=== PATIENT | female | born 1965 | race Caucasian/White ===

== ENCOUNTER → 2017-02-02 | Outpatient (CLI) | payer BC ==
--- NOTE | 2017-02-02 21:57 | WWHP ---
DATE OF SERVICE: 02/02/17 CHIEF COMPLAINT: The patient is here for her routine gynecological exam and mammogram. HISTORY OF PRESENT ILLNESS: This is a 51 -year-old G2, P2 with an LMP of . She states her last prior menstrual period was on 09/19/16. Prior to September , menses were regular every month. She denies hot flashes. She states she has noticed a small lump in the left breast which was first felt three weeks ago. She states she does not always feel it. She states it is smaller than a pea but larger than a BB. This is more noticeable when she is in the sitting position. She denies any breast pain or soreness. PAST MEDICAL HISTORY: Rosacea. Medications: 1. Ibuprofen prn. 2. Multivitamin daily. 3. Finacea cream b.i.d. for rosacea. ALLERGIES: No known drug allergies. 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 FAMILY HISTORY: Father has dementia and high blood pressure. Mother had lung cancer. Paternal grandmother had breast cancer and hypertension. Grandfather had diabetes and hypertension. SOCIAL HISTORY: She denies tobacco, alcohol and drug use. 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 She has been since 1988. REVIEW OF SYSTEMS: She has lost about 4 pounds over the last year. She denies respiratory, cardiac or GI problems. PHYSICAL EXAM: Blood pressure 133/82. Height 5 feet 6 inches, weight 112 pounds. Temperature 97.3. Pulse 78. This is a well developed, thin white female who is alert and oriented times three in no acute distress. HEENT: is within normal limits. Neck is supple without mass or thyromegaly. Chest and lungs clear to auscultation. Heart is regular rate and rhythm. Breasts there is a palpable small lump in the left breast, at approximately the 4 o'clock position, approximately 1 cm from the areola. This measures approximately 0.5 cm and is mobile and smooth. This is nontender and there is no erythema or dimpling in this area. There are no other palpable breast masses. Axillary exam is negative for adenopathy. Back negative for CVA tenderness. Abdomen is soft and nontender without palpable masses. Pelvic exam, normal external genitalia. Cervix and vagina reveals moderate amount of menstrual blood consistent with her current menses. The cervix appears normal. Bimanual exam and rectal exam were deferred and these will be done when she returns for her Pap smear. Extremities nontender. IMPRESSION: 1. A 51 year old perimenopausal female with recent oligomenorrhea without significant vasomotor symptoms. 2. Small left breast mass noticed by the patient three weeks ago which is smooth, mobile and approximately 0.5 cm. This is not very suspicious by examination today. PLAN: 1. Pap smear and bimanual examination were deferred because of the amount of menstrual blood. She will return within the next couple of weeks when her period has stopped. We will do the rest of the pelvic exam at that time. 2. Self breast examination was discussed. 3. Diagnostic mammogram with left ultrasound will be done today to further evaluate the small lump that she has palpated. If this is benign, we will proceed with conservative management as it is not very suspicious by examination. 4. The patient will keep a menstrual calender and call if she is having menstrual problems. 5. She will return in one year and prn. MTDD
--- NOTE | 2017-02-03 10:26 | MM ---
Reason for exam: clinical finding. Last mammogram was performed 1 year ago. History: Patient had first child at age 33. Family history of breast cancer in paternal grandmother at age 72. Indicated problem(s): lump or thickening in the left breast. Physical Findings: 0.5cm nodule in the left breast at 4 o'clock (). MG 3D Diag Mammo W/Cad NAHUN Bilateral CC and MLO view(s) were taken. Prior study comparison: February 04, 2016, bilateral MG 3d screening mammo w/cad. January 08, 2015, bilateral MG screening mammo w CAD. The breast tissue is extremely dense which could obscure a lesion on mammography. There is no discrete abnormality. These results were verbally communicated with the patient and result sheet given to the patient on 02/02/17. ASSESSMENT: Negative, BI-RAD 1 RECOMMENDATION: Routine screening mammogram of both breasts in 1 year.
--- NOTE | 2017-02-03 10:29 | USB ---
Reason for exam: clinical finding. History: Patient had first child at age 33. Family history of breast cancer in paternal grandmother at age 72. US Breast LT Left breast ultrasound includes all four quadrants, the retroareolar region and axilla. Finding demonstrate no cystic or solid lesion seen. These results were verbally communicated with the patient and result sheet given to the patient on 02/02/17. ASSESSMENT: Negative, BI-RAD 1 RECOMMENDATION: Routine screening mammogram of both breasts in 1 year. Manage patient on a clinical basis. (Palpable).
== END | disposition home or self-care (01) ==
LOC: WWCWWP 08:23
PROVIDERS: ATTEND Obstetrics & Gynecology
DX: N63 Unspecified lump in breast (principal)
CPT/HCPCS: 76641; G0204; G0279

== ENCOUNTER → 2017-02-09 | Outpatient (CLI) | payer BC | LOC: WWCWWP 08:30 | PROVIDERS: ATTEND Obstetrics & Gynecology | DX: Z01.419 Encounter for gynecological examination (general) (routine) without abnormal findings (principal) ==

== ENCOUNTER → 2017-11-30 | Outpatient (CLI) | payer BC ==
[2017-11-30 14:19] VITALS: BP 139/80; PULSE 74; TEMP 98; BMI 18.6
--- NOTE | 2017-11-30 14:41 | P.PN ---
Progress Note - Text Progress Note Date: 11/30/17 Chief complaint: left breast mass which has gradually become more prominent to the patient. HPI: this is a 52-year-old with an LMP of September 2017. She was previously seen on 02/02/2017 for her annual exam and mammogram. At that time, she felt a small lump in the left breast that she noticed since January 2017. She had a mammogram which was negative and a left breast ultrasound which demonstrated no system or solid lesion. She has done monthly self breast exams and feels that the lump has become slightly more prominent and easier to feel. She believes it may have gotten slightly larger. She denies any breast pain, nipple discharge, dimpling or fever. Review of systems: she denies respiratory, cardiac, or G.I. problems. Physical exam: blood pressure 139/80, height 5'6", weight 115 pounds, temperature 98.1, pulse 74. This is a well-developed thin white female who was alert and oriented times 3 in no acute distress. Breasts: there is a small firm smooth mass at the 4 clock position of the left breast at the edge of the areola. This measures approximately 6 mm. This is nontender. This is most easily palpated when approaching the area from the nipple area. It is less noticeable when palpating from the outer margin of the breast toward the middle. There is no dimpling and no discharge. There are no other palpable masses noted. There are no right breast masses. Axillary exam is negative for adenopathy. Impression: 1. Slightly more prominent left breast mass at the 4 clock position and measures approximately 6 mm. At this time there are mostly benign characteristics. This most likely represents benign breast tissue such as a prominent milk duct. A breast cyst her other breast neoplasm is possible. Plan: 1. The left breast mass was marked with a small bead. Left breast ultrasound will be done today. If benign appearing or if there are no solid or systemic areas noted, plan conservative management. If this is the case she will return in February for her annual exam and mammogram. Total time spent the patient: 10 minutes.
--- NOTE | 2017-12-01 11:58 | USB ---
Reason for exam: clinical finding. History: Patient had first child at age 33. Family history of breast cancer in paternal grandmother at age 72. Physical Findings: Dr. Dash performed breast exam. US Breast LT Left complete breast ultrasound includes all four quadrants, the retroareolar region and axilla. Finding demonstrates a 4 x 3 x 5mm oval, mixed lesion at 5 o'clock BB. These results were verbally communicated with the patient and result sheet given to the patient on 11/30/17. ASSESSMENT: Suspicious, BI-RAD 4 RECOMMENDATION: Ultrasound core biopsy of the left breast. (or aspiration) Called Dr. Dash with mammographic findings and has scheduled an appointment for the patient for 01/06/18 at 10:[address] Calero. Biopsy scheduled for 12/07/17 at 2:20. PRELIMINARY REPORT CALLED AND FAXED TO DR. CALERO ON 11/30/17.
== END | disposition home or self-care (01) ==
LOC: WWCWWP 13:49
PROVIDERS: ATTEND Obstetrics & Gynecology
DX: N63.20 Unspecified lump in the left breast, unspecified quadrant (principal)

== ENCOUNTER → 2017-12-07 | Day surgery (SDC) | payer BC ==
[2017-12-07 13:34] VITALS: RESP 16; BMI 18.3
[2017-12-07 15:07] VITALS: BP 121/75; PULSE 60; TEMP 98.5
--- NOTE | 2017-12-07 15:42 | USB ---
Ultrasound-guided breast cyst aspiration HISTORY: Abnormal breast ultrasound Maximal barrier technique was utilized. The skin overlying a suitable path to the lesion was localized with ultrasound and the overlying skin prepped and draped. Lidocaine used for local anesthesia. 18-gauge needle advanced into the lesion. Aspiration of greenish fluid, less than 1 cc was noted, the lesion resolved following aspiration. Patient remained in stable condition. Hemostasis achieved. No immediate consultation. IMPRESSION: Status post ultrasound guided aspiration of breast cyst, specimen sent for laboratory analysis per patient request. This procedure performed by the undersigned. Pathology Results: Benign CYST ASPIRATION, LEFT BREAST: Satisfactory for evaluation. Negative for malignancy. Features consistent with an apocrine cyst are present. Recommendation Routine screening mammogram. Back on schedule for February 2018. BIBIANAD
== END ==
LOC: RADUSWWP 13:21
PROVIDERS: ATTEND Surgery
DX: N60.02 Solitary cyst of left breast (principal)
CPT/HCPCS: 88108; 76942; 19000; J2001; 88305

== ENCOUNTER → 2018-02-15 | Outpatient (CLI) | payer BC ==
[2018-02-15 08:43] VITALS: BP 157/93; PULSE 63; RESP 18; TEMP 98; BMI 18.6
--- NOTE | 2018-02-15 09:32 | P.HPOB ---
History of Present Illness H&P Date: 02/15/18 Chief Complaint: The patient is here for her routine gynecologic exam and mammogram. This is a 52-year-old with an LMP of September 2017. She did have a small amount of spotting in January 2018. Menses had been regular up until about 1 1/2 years ago when they started spacing out. She has not gone for your without menses. She has had some warm episodes at night without significant hot flashes during the day. She recently had a left breast cyst aspiration about 2 months ago. She no longer feels a lump in the left breast. She is without gynecologic complaints. Review of Systems The patient's weight has been stable over the last year. She denies respiratory , cardiac, or G.I. problems. Past Medical History Past Medical History: No Reported History Additional Past Medical History / Comment(s): Rosacea. 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 She had a Pedunculated fibroid removed vaginally in 2005. History of Any Multi-Drug Resistant Organisms: None Reported Additional Past Surgical History / Comment(s): colonoscopy 1999. Pedunculated fibroid removed vaginally 2005. 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 - Past Family History Mother Family Medical History: Cancer (LUNG) Father Family Medical History: Hypertension Additional Family Medical History / Comment(s): Paternal grandmother had breast cancer and hypertension. Medications and Allergies Home Medications Medication Instructions Recorded Confirmed Type Azelaic Acid [Finacea] 1 each TOPICAL BID 02/14/16 02/15/18 History Loratadine [Claritin] 10 mg PO DAILY PRN 12/03/17 02/15/18 History Multivitamins, Thera [Multivitamin 1 each PO DAILY 12/03/17 02/15/18 History (formulary)] Ibuprofen [Motrin Ib] 200 mg PO DAILY PRN 02/15/18 02/15/18 History Allergies Allergy/AdvReac Type Severity Reaction Status Date / Time No Known Allergies Allergy Verified 12/07/17 13:27 Exam Vital Signs Temp Pulse Resp BP 02/15/18 08:34 98.0 F 63 18 157/93 Intake and Output 02/14/18 02/15/18 02/15/18 22:59 06:59 14:59 Other: Weight 50.802 kg Height 5'5", BMI 18.6, repeat blood pressure 130/70. This is a well-developed well-nourished thin white female who is alert and oriented times 3 in no acute distress. HEENT: Within normal limits. NECK: Supple without mass or thyromegaly. CHEST AND LUNGS: Clear to auscultation. HEART: Regular rate and rhythm. BREASTS: Are without mass or discharge. AXILLARY EXAM: Negative for adenopathy. BACK: Negative for CVA tenderness. ABDOMEN: Soft, nontender, without palpable masses. PELVIC EXAM: Normal external genitalia with mild atrophy. There is a benign appearing mole on the monstrous pubis measuring approximately 0.5 cm and is flat. This is unchanged from her exam one year ago. Cervix and vagina appear normal. There is no unusual discharge. There is no evidence of prolapse. The uterus is midposition, nongravid size and nontender. There is a mass in the right adnexal region measuring past me 3.5 cm. It is somewhat firm and nontender. There are no other palpable adnexal masses. RECTAL EXAM: rectovaginal exam is negative for mass or tenderness and is negative for occult blood. EXTREMITIES: Nontender. IMPRESSION: 1. 52 year old perimenopausal female with oligomenorrhea. Her is status post vasectomy. 2. Palpable right adnexal mass. Differential diagnosis will include prominent right ovary, right ovarian mass, deviated uterus, and uterine fibroid. 3. Elevated blood pressure improved on repeat. 4. Recent left breast aspiration with no palpable breast masses at this time. PLAN: 1. Pap smear was deferred since she had a normal one last year. 2. Self breast awareness was discussed. 3. Screening mammogram will be done today. 4. Transvaginal ultrasound will be done today. 5. We have discussed her elevated blood pressure. I have recommended that she check her own blood pressure on a regular basis and follow up with her primary care physician for blood pressure elevations. 6. She'll keep a menstrual calendar in college is having menstrual problems or if bleeding after 12 months of amenorrhea. 7. She'll return in one year.
--- NOTE | 2018-02-15 10:08 | US ---
EXAMINATION TYPE: US transvaginal DATE OF EXAM: 02/15/2018 COMPARISON: NONE CLINICAL HISTORY: R19.09 PELVIC MASS RIGHT. Possible right pelvic mass felt on Dr's examination, pt h as no complaints at this time TECHNIQUE: Transvaginal (TV), ordered by physician Date of LMP: 01/06/2018 EXAM MEASUREMENTS: Uterus: 8.1 x 4.9 x 6.2 cm Endometrial Stripe: 0.4 cm Right Ovary: 2.7 x 2.0 x 1.8 cm Left Ovary: 2.6 x 1.7 x 2.6 cm 1. Uterus: Anteverted Heterogeneous with two probable fibroids ml/right uterus 1)= 3.4 x 2..9 x 3. 0 cm 2)= 2.3 x 1.8 x 2.2 cm 2. Endometrium: wnl 3. Right Ovary: wnl 4. Left Ovary: wnl 5. Bilateral Adnexa: wnl 6. Posterior cul-de-sac: wnl IMPRESSION: 1. Leiomyomatous change of the uterus.
--- NOTE | 2018-02-22 10:26 | MM ---
Reason for exam: screening (asymptomatic). Last mammogram was performed 1 year ago. History: Patient had first child at age 33. Family history of breast cancer in paternal grandmother at age 72. Benign US breast aspiration single LT of the left breast, December 07, 2017. Physical Findings: A clinical breast exam by your physician is recommended on an annual basis and results should be correlated with mammographic findings. MG 3D Screening Mammo W/Cad Bilateral CC and MLO view(s) were taken. Prior study comparison: February 02, 2017, bilateral MG 3d diag mammo w/cad NAHUN. February 04, 2016, bilateral MG 3d screening mammo w/cad. The breast tissue is extremely dense which could obscure a lesion on mammography. There is no discrete abnormality. ASSESSMENT: Negative, BI-RAD 1 RECOMMENDATION: Routine screening mammogram of both breasts in 1 year.
--- NOTE | 2018-02-22 17:38 | P.PN ---
Progress Note - Text Progress Note Date: 02/22/18 OUTPATIENT FOLLOW-UP NOTE TEST(S)/RESULTS: pelvic ultrasound from 02/15/2018 showed 2 uterine fibroids mid to right sided. One measures 3.4 cm and the other 2.3 cm. The ovaries were both visualized and within normal limits. METHOD OF NOTIFICATION: the patient was notified by phone. PATIENT COMMENTS: the patient has reminded me that she did have a history of uterine fibroids and had had one or more pedunculated fibroids removed many years ago. DIAGNOSIS: uterine fibroids DISCUSSION: I have reassured the patient that no further workup is necessary at this time. She will call she is having pelvic symptoms that may be related to fibroids and she will continue to have yearly pelvic exams to see if there are changes noted. PLAN: she will return in one year and PRN.
== END | disposition home or self-care (01) ==
LOC: WWCWWP 08:29
PROVIDERS: ATTEND Obstetrics & Gynecology
DX: D25.9 Leiomyoma of uterus, unspecified (principal)
CPT/HCPCS: 76830; 77063; 77067

== ENCOUNTER → 2018-03-31 | Outpatient (CLI) | payer BC ==
--- NOTE | 2018-04-01 08:41 | USB ---
Reason for exam: clinical finding. History: Patient had first child at age 33. Family history of breast cancer in paternal grandmother at age 72. Benign US breast aspiration single LT of the left breast, December 07, 2017. Indicated problem(s): palpable abnormality in the left breast. Physical Findings: Nurse Summary: nodular, right palpable lump (nurse kp). US Breast LT Left complete breast ultrasound includes all four quadrants, the retroareolar region and axilla. Finding demonstrates a 0.4 x 0.2 x 0.5cm lesion too small to characterize at 5 o'clock reoccurrence of prior and a 0.3 x 0.2 x 0.3cm new lesion too small to characterize at 5 o'clock. These results were verbally communicated with the patient and result sheet given to the patient on 03/31/18. ASSESSMENT: Probably benign, BI-RAD 3 RECOMMENDATION: Ultrasound of the left breast in 3 months.
== END | disposition home or self-care (01) ==
LOC: RADUSWWP 15:38
PROVIDERS: ATTEND Obstetrics & Gynecology
DX: N63.13 Unspecified lump in the right breast, lower outer quadrant (principal)

== ENCOUNTER → 2018-06-23 | Outpatient (CLI) | payer BC ==
--- NOTE | 2018-06-23 13:30 | USB ---
Reason for exam: clinical finding. History: Patient had first child at age 33. Family history of breast cancer in paternal grandmother at age 72. Benign US breast aspiration single LT of the left breast, December 07, 2017. Indicated problem(s): palpable abnormality and lump or thickening in the left breast. Physical Findings: Nurse Summary: 0.5cm nodule in the left breast at 5 o'clock (nurse cw). US Breast LT Left complete breast ultrasound includes all four quadrants, the retroareolar region and axilla. Finding demonstrates a 0.5 x 0.4 x 0.5cm oval, cystic lesion at 5 o'clock with enhancement. These results were verbally communicated with the patient and result sheet given to the patient on 06/23/18. ASSESSMENT: Benign, BI-RAD 2 RECOMMENDATION: Return to routine screening mammogram schedule for both breasts.
== END ==
LOC: RADUSWWP 10:14
PROVIDERS: ATTEND Obstetrics & Gynecology
DX: N63.20 Unspecified lump in the left breast, unspecified quadrant (principal)

== ENCOUNTER → 2019-02-10 | Outpatient (CLI) | payer BC ==
--- NOTE | 2019-02-10 07:51 | US ---
EXAMINATION TYPE: US abdomen complete DATE OF EXAM: 02/10/2019 COMPARISON: NONE CLINICAL HISTORY: R10.9 ABD PAIN. Pain EXAM MEASUREMENTS: Liver Length: 12 cm Gallbladder Wall: 0.1 cm CBD: 0.4 cm Spleen: 8.3 cm Right Kidney: 10.9 x 4.0 x 4.6 cm Left Kidney: 10.8 x 5.2 x 4.1 cm Pancreas: wnl Liver: wnl Gallbladder: wnl Evidence for sonographic Santiago's sign: No CBD: wnl Spleen: wnl Right Kidney: wnl Left Kidney: wnl Upper IVC: wnl Abd Aorta: wnl The liver is homogenous. The intrahepatic portion of the IVC and proximal abdominal aorta are within normal limits. There is no evidence of cholelithiasis. Common bile duct is unremarkable. The visu alized portions of the pancreas are homogenous. The spleen is unremarkable. Kidneys are symmetric a nd free of hydronephrosis. No renal lesions are seen. IMPRESSION: Unremarkable abdominal ultrasound. No sonographic evidence of cholelithiasis nor acute ch olecystitis. No hydronephrosis or nephrolithiasis.
== END | disposition home or self-care (01) ==
LOC: RADUSWWP 06:50
PROVIDERS: ATTEND Internal Medicine
DX: R10.9 Unspecified abdominal pain (principal)
CPT/HCPCS: 76700

== ENCOUNTER → 2019-02-14 | Outpatient (CLI) | payer BC ==
[2019-02-14 10:51] VITALS: BP 142/82; PULSE 84; RESP 18; TEMP 98; BMI 18.2
--- NOTE | 2019-02-14 12:40 | P.HPOB ---
History of Present Illness H&P Date: 02/14/19 Chief Complaint: The patient is here for her routine gynecologic exam and ma mmogram. This is a 53-year-old with an LMP of 07/18/2018. The patient's menstrual periods have been spacing out over the past 2 and half years. She has had vaginal bleeding in January 2018 and again in July 2018. She has not gone one full year without vaginal bleeding. She has occasional hot flashes which are not very bad. She is without gynecologic complaints. Review of Systems The patient's weight has been stable over the last year. She denies respiratory, cardiac, or G.I. problems. Past Medical History Past Medical History: No Reported History Additional Past Medical History / Comment(s): Rosacea. 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 She had a Pedunculated fibroid removed vaginally in 2005. History of Any Multi-Drug Resistant Organisms: None Reported Past Surgical History: No Surgical Hx Reported Additional Past Surgical History / Comment(s): colonoscopy 02/2016. Pedunculated fibroid removed vaginally 2005. Past Anesthesia/Blood Transfusion Reactions: No Reported Reaction Past Psychological History: No Psychological Hx Reported Smoking Status: Never smoker Past Alcohol Use History: None Reported Past Drug Use History: None Reported - Past Family History Mother Family Medical History: Cancer Additional Family Medical History / Comment(s): metastatic lung cancer Father Family Medical History: Hypertension Additional Family Medical History / Comment(s): Paternal grandmother had breast cancer and hypertension. Medications and Allergies Home Medications Medication Instructions Recorded Confirmed Type Azelaic Acid [Finacea] 1 each TOPICAL BID 02/14/16 02/14/19 History Loratadine [Claritin] 10 mg PO DAILY PRN 12/03/17 02/14/19 History Multivitamins, Thera [Multivitamin 1 each PO DAILY 12/03/17 02/14/19 History (formulary)] Ibuprofen [Motrin Ib] 200 mg PO DAILY PRN 02/15/18 02/14/19 History Allergies Allergy/AdvReac Type Severity Reaction Status Date / Time No Known Allergies Allergy Verified 02/14/19 10:43 Exam Vital Signs Temp Pulse Resp BP Pulse Ox 02/14/19 10:44 98.0 F 84 18 142/82 100 Intake and Output 02/13/19 02/14/19 02/14/19 22:59 06:59 14:59 Other: Weight 51.256 kg Height 5'6", weight 113 pounds, BMI 18.2. This is a well-developed well-nourished thin white female who is alert and oriented times 3 in no acute distress. HEENT: Within normal limits. NECK: Supple without mass or thyromegaly. CHEST AND LUNGS: Clear to auscultation. HEART: Regular rate and rhythm. BREASTS: Are without mass or discharge. AXILLARY EXAM: Negative for adenopathy. BACK: Negative for CVA tenderness. ABDOMEN: Soft, nontender, without palpable masses. PELVIC EXAM: Normal external genitalia. Cervix and vagina appear normal. There is no unusual discharge. There is no evidence of prolapse. The uterus is midposition, nongravid size and nontender. There are no palpable adnexal masses or tenderness. RECTAL EXAM: rectovaginal exam is negative for mass or tenderness and is negative for occult blood. EXTREMITIES: Nontender. IMPRESSION: 1. 53-year-old perimenopausal female with oligomenorrhea and normal gynecologic exam. 2. Mildly elevated blood pressure. PLAN: 1. Pap smear was performed. 2. Self breast awareness was discussed with the patient. 3. Screening mammogram will be done today. 4. I've asked that she check her blood pressure on her own on a regular basis. She will follow-up with Dr. Velásquez for blood pressure elevations. 5. Osteoporosis prevention was discussed. I have stressed the importance of adequate calcium, vitamin D and regular exercise. Recommended amounts of calcium and vitamin D were also discussed. 6. The patient will continue to keep a menstrual calendar. She'll call if she is having menstrual problems. She will also call if she has bleeding after one year of amenorrhea. 7. She was advised to return in one year for her annual well woman exam.
--- NOTE | 2019-02-16 10:36 | MM ---
Reason for exam: screening (asymptomatic). Last mammogram was performed 1 year ago. History: Patient had first child at age 33. Family history of breast cancer in paternal grandmother at age 72. Benign US breast aspiration single LT of the left breast, December 07, 2017. Physical Findings: A clinical breast exam by your physician is recommended on an annual basis and results should be correlated with mammographic findings. MG 3D Screening Mammo W/Cad Bilateral CC and MLO view(s) were taken. Prior study comparison: February 15, 2018, bilateral MG 3d screening mammo w/cad. February 02, 2017, bilateral MG 3d diag mammo w/cad NAHUN. The breast tissue is extremely dense which could obscure a lesion on mammography. There is a left round circumscribed retroareolar mass representing a known cyst on prior ultrasound. No suspicious abnormality. No significant changes when compared with prior studies. ASSESSMENT: Benign, BI-RAD 2 RECOMMENDATION: Routine screening mammogram of both breasts in 1 year.
== END | disposition home or self-care (01) ==
LOC: WWCWWP 10:20
PROVIDERS: ATTEND Obstetrics & Gynecology
DX: Z12.31 Encounter for screening mammogram for malignant neoplasm of breast (principal)
CPT/HCPCS: 77063; 77067

== ENCOUNTER → 2019-07-21 | Outpatient (CLI) | payer BC ==
--- NOTE | 2019-07-21 15:31 | BD ---
EXAMINATION TYPE: Axial Bone Density DATE OF EXAM: 07/21/2019 COMPARISON: NONE CLINICAL HISTORY: M 85.9 Height: 65.5 IN Weight: 111 LBS RISK FACTORS HISTORY OF: Family History of Osteoporosis: YES MOTHER Active: YES Postmenopausal woman: AGE 54 MEDICATIONS: Additional Medications: MULTI VIT, EXAM MEASUREMENTS: Bone mineral densitometry was performed using the [employer] System. Bone mineral density as measured about the Lumbar spine is: ----- L1-L4(G/cm2): 0.928 T Score Values are as follows: ----- L2: -1.9 ----- L3: -2.1 ----- L4: -2.3 ----- L1-L4: -2.1 Bone mineral density BASELINE Bone mineral density about the R hip (g/cm2): 0.810 Bone mineral density about the L hip (g/cm2): 0.816 T Score values are as follows: -----R Neck: -1.6 -----L Neck: -1.6 -----R Total: -2.2 -----L Total: -1.9 Bone mineral density BASELINE IMPRESSION: Osteopenia (T Score between -2.5 and -1). There is slightly increased risk of fracture and the patient may be considered for treatment. Re-Screen 2-5 years. NOTE: T-SCORE=SD OF THE YOUNG ADULT MEAN.
== END | disposition home or self-care (01) ==
LOC: RADBDWWP 13:04
PROVIDERS: ATTEND Internal Medicine
DX: M85.89 Other specified disorders of bone density and structure, multiple sites (principal)
CPT/HCPCS: 77080

== ENCOUNTER → 2019-12-29 | Outpatient (CLI) | payer BC ==
--- NOTE | 2019-12-30 02:44 | MR ---
EXAMINATION TYPE: MR knee LT wo con DATE OF EXAM: 12/29/2019 COMPARISON: None HISTORY: Left Knee Pain, Inner side of Kneecap. Swelling. 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 Multiplanar multiecho imaging of the left knee was performed without contrast. FINDINGS: There is a small knee joint effusion. The joint spaces are fairly normal. The anterior and posterior cruciate ligaments appear intact. The medial and lateral menisci appear intact. The collateral ligame nts are intact. The distal femur and proximal tibia appear intact. There is no evidence of a fracture . The patella appears intact. I do not see a definite soft tissue mass. There is minimal soft tissue edema on the inferior lateral aspect of the patella. This could relate to some bruising. IMPRESSION: No evidence of ligamentous or meniscal tear. No fracture. Small knee joint effusion with some soft tissue edema at the inferior lateral aspect of the patella. No discrete or suspicious mass identified.
== END | disposition home or self-care (01) ==
LOC: RADMRIMAIN 15:35
PROVIDERS: ATTEND Internal Medicine Geriatric Medicine
DX: M25.462 Effusion, left knee (principal); M79.89 Other specified soft tissue disorders; C49.22 Malignant neoplasm of connective and soft tissue of left lower limb, including hip

== ENCOUNTER → 2020-02-20 | Outpatient (CLI) | payer BC ==
[2020-02-20 10:48] VITALS: BP 157/92; PULSE 82; RESP 18; TEMP 97.7
--- NOTE | 2020-02-20 11:28 | P.HPOB ---
History of Present Illness H&P Date: 02/20/20 Chief Complaint: The patient is here for her routine gynecologic exam and ma mmogram. This is a 54-year-old with an LMP of July 2018. The patient is without gynecologic complaints and denies any postmenopausal bleeding. She denies any significant hot flashes but occasionally feels warm at night. Review of Systems The patient has lost 2 pounds over the last year. She denies respiratory, cardiac, or G.I. problems. Past Medical History Past Medical History: No Reported History Additional Past Medical History / Comment(s): Osteopenia. Rosacea. 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 She had a Pedunculated fibroid removed vaginally in 2005. History of Any Multi-Drug Resistant Organisms: None Reported Past Surgical History: No Surgical Hx Reported Additional Past Surgical History / Comment(s): colonoscopy 02/2016. Pedunculated fibroid removed vaginally 2005. Past Anesthesia/Blood Transfusion Reactions: No Reported Reaction Past Psychological History: No Psychological Hx Reported Smoking Status: Never smoker Past Alcohol Use History: None Reported Past Drug Use History: None Reported Additional History: She has been since 1988. 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 - Past Family History Mother Family Medical History: Cancer Additional Family Medical History / Comment(s): metastatic lung cancer Father Family Medical History: Hypertension Additional Family Medical History / Comment(s): Paternal grandmother had breast cancer and hypertension. Medications and Allergies Home Medications Medication Instructions Recorded Confirmed Type Azelaic Acid [Finacea] 1 each TOPICAL BID 02/14/16 02/20/20 History Loratadine [Claritin] 10 mg PO DAILY PRN 12/03/17 02/20/20 History Multivitamins, Thera [Multivitamin 1 each PO DAILY 12/03/17 02/20/20 History (formulary)] Ibuprofen [Motrin Ib] 200 mg PO DAILY PRN 02/15/18 02/20/20 History Naproxen Sodium [Aleve] 220 mg PO DAILY 02/20/20 02/20/20 History Allergies Allergy/AdvReac Type Severity Reaction Status Date / Time No Known Allergies Allergy Verified 02/20/20 10:40 Exam Vital Signs Temp Pulse Resp BP Pulse Ox 02/20/20 10:44 97.7 F 82 18 157/92 99 Intake and Output 02/19/20 02/20/20 02/20/20 22:59 06:59 14:59 Other: Weight 50.349 kg Repeat blood pressure 130/76. Height 5 feet 6 inches, weight 111 pounds, BMI 17.9. This is a well-developed well-nourished thin white female who is alert and oriented times 3 in no acute distress. HEENT: Within normal limits. NECK: Supple without mass or thyromegaly. CHEST AND LUNGS: Clear to auscultation. HEART: Regular rate and rhythm. BREASTS: Are without mass or discharge. AXILLARY EXAM: Negative for adenopathy. BACK: Negative for CVA tenderness. ABDOMEN: Soft, nontender, without palpable masses. PELVIC EXAM: Normal external genitalia with mild atrophy. Cervix and vagina ap pear normal with mild atrophy. There is no unusual discharge. There is no evidence of prolapse. The uterus is anterior, nongravid size and nontender. There are no palpable adnexal masses or tenderness. RECTAL EXAM: Rectovaginal exam is negative for mass or tenderness and is negative for occult blood. EXTREMITIES: Nontender. IMPRESSION: 1. 54-year-old menopausal female with normal gynecologic exam. 2. History of uterine fibroids which are asymptomatic, with normal gynecologic exam 3. Osteopenia PLAN: 1. Pap smear was deferred since she had a normal one on 02/14/2019. 2. Self breast awareness was discussed with the patient. 3. Screening mammogram will be done today. 4. Osteoporosis prevention was discussed. I have stressed the importance of adequate calcium, vitamin D and regular exercise. Recommended amounts of calcium and vitamin D were also discussed. She had a baseline bone density test done on 07/21/2019 which showed osteopenia. I have recommended that she repeat this again in 2021. 5. I have recommended that she check her own blood pressure at home and she does have a blood pressure cuff for this. She is to do this on a regular basis and follow-up with Dr. Estrada for blood pressure elevations. 6. She was advised to return in one year for her annual well woman exam.
--- NOTE | 2020-02-20 12:25 | MM ---
Reason for exam: screening (asymptomatic). Last mammogram was performed 1 year ago. History: Patient had first child at age 33. Family history of breast cancer in paternal grandmother at age 72. Benign US breast aspiration single LT of the left breast, December 07, 2017. Physical Findings: A clinical breast exam by your physician is recommended on an annual basis and results should be correlated with mammographic findings. MG 3D Screening Mammo W/Cad Bilateral CC and MLO view(s) were taken. Prior study comparison: February 14, 2019, bilateral MG 3d screening mammo w/cad. February 15, 2018, bilateral MG 3d screening mammo w/cad. The breast tissue is extremely dense which could obscure a lesion on mammography. Finding: There is a 6-7 mm circumscribed round mass in the slight lower outer quadrant of the left breast. There is a chronic nodularity in the left breast. Increase in size versus ultrasound and mammogram since February 14, 2019 and February 15, 2018. ASSESSMENT: Incomplete: need additional imaging evaluation, BI-RAD 0 RECOMMENDATION: Ultrasound of the left breast. [facility] will attempt to contact patient to return for ultrasound.
== END | disposition home or self-care (01) ==
LOC: WWCWWP 10:32
PROVIDERS: ATTEND Obstetrics & Gynecology
DX: Z12.31 Encounter for screening mammogram for malignant neoplasm of breast (principal)
CPT/HCPCS: 77063; 77067

== ENCOUNTER → 2020-02-29 | Outpatient (CLI) | payer BC ==
--- NOTE | 2020-02-29 10:06 | USB ---
Reason for exam: additional evaluation requested from abnormal screening. History: Patient had first child at age 33. Family history of breast cancer in paternal grandmother at age 72. Benign US breast aspiration single LT of the left breast, December 07, 2017. 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 US Breast Workup Limited LT Left limited breast ultrasound including focal area of concern, retroareolar and axilla demonstrates a 0.6 x 0.6 x 0.4cm cystic lesion at 5 o'clock, corresponds to the mammographic finding and palpable area. Scanned 3-6 o'clock. These results were verbally communicated with the patient and result sheet given to the patient on 02/29/20. ASSESSMENT: Benign, BI-RAD 2 RECOMMENDATION: Return to routine screening mammogram schedule for both breasts.
== END | disposition home or self-care (01) ==
LOC: RADUSWWP 08:46
PROVIDERS: ATTEND Obstetrics & Gynecology
DX: R92.8 Other abnormal and inconclusive findings on diagnostic imaging of breast (principal)

== ENCOUNTER → 2021-02-03 | Outpatient (CLI) | payer BC ==
[2021-02-03 20:12] LABS: African American GFR (CKD) 124.5 (60.0-200.0); Albumin 4.9 g/dL (3.80-4.90); Albumin/Globulin Ratio 1.81 (1.60-3.17); Anion Gap 11.7 mmol/L (4.00-12.00); Calcium 9.8 mg/dL (8.7-10.3); Carbon Dioxide 26.3 mmol/L (21.6-31.8); Globulin 2.7 g/dL (1.6-3.3); Non-African American GFR(CKD) 107.4 (60.0-200.0); Total Bilirubin 0.5 mg/dL (0.2-1.2); Total Protein 7.6 g/dL (6.2-8.2)
== END | disposition home or self-care (01) ==
LOC: LABWHC1 10:55
PROVIDERS: ATTEND Dermatology Dermatopathology
DX: L29.9 Pruritus, unspecified (principal); R21 Rash and other nonspecific skin eruption
CPT/HCPCS: 36415; 80053; 85652

== ENCOUNTER → 2021-04-01 | Outpatient (CLI) | payer BC ==
[2021-04-01 10:46] VITALS: BP 158/91; PULSE 84; RESP 16; TEMP 98.4
--- NOTE | 2021-04-01 12:01 | P.HPOB ---
History of Present Illness H&P Date: 04/01/21 Chief Complaint: The patient is here for her routine gynecologic exam and ma mmogram. This is a 56-year-old with an LMP of July 2018. The patient is complaining of a slightly yellowish thick vaginal discharge for about 1 month. She has noticed slight irritation near the urethra. She denies vulvar pruritus or vaginal odor. She has noticed slightly more discharge after running. The discharge seems intermittent. She is otherwise without gynecologic complaints and denies any postmenopausal bleeding. Review of Systems The patient's weight has been stable over the last year. She denies respiratory, cardiac, or G.I. problems. Past Medical History Past Medical History: No Reported History Additional Past Medical History / Comment(s): Osteopenia. Rosacea. 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 She had a Pedunculated fibroid removed vaginally in 2005. History of Any Multi-Drug Resistant Organisms: None Reported Additional Past Surgical History / Comment(s): colonoscopy 02/2016. Pedunculated fibroid removed vaginally 2005. Past Anesthesia/Blood Transfusion Reactions: No Reported Reaction Past Psychological History: No Psychological Hx Reported Smoking Status: Never smoker Past Alcohol Use History: None Reported Past Drug Use History: None Reported Additional History: She has been since 1988 and is sexually active. 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 - Past Family History Mother Family Medical History: Cancer Additional Family Medical History / Comment(s): metastatic lung cancer Father Family Medical History: Hypertension Additional Family Medical History / Comment(s): Paternal grandmother had breast cancer and hypertension. Medications and Allergies Home Medications Medication Instructions Recorded Confirmed Type Azelaic Acid [Finacea] 1 each TOPICAL BID 02/14/16 04/01/21 History Multivitamins, Thera [Multivitamin 1 each PO DAILY 12/03/17 04/01/21 History (formulary)] Ibuprofen [Motrin Ib] 200 mg PO DAILY PRN 02/15/18 04/01/21 History Naproxen Sodium [Aleve] 220 mg PO DAILY 02/20/20 04/01/21 History Betamethasone Dipropionate 1 applic TOPICAL DAILY PRN 04/01/21 04/01/21 History [Betamethasone Diprop Augm Gel 0.05%] Cetirizine HCl [Zyrtec] 10 mg PO DAILY 04/01/21 04/01/21 History Allergies Allergy/AdvReac Type Severity Reaction Status Date / Time No Known Allergies Allergy Verified 04/01/21 10:37 Exam Vital Signs Temp Pulse Resp BP Pulse Ox 04/01/21 10:40 98.4 F 84 16 158/91 99 Intake and Output 03/31/21 04/01/21 04/01/21 22:59 06:59 14:59 Other: Weight 51.256 kg Height 5 feet 5 inches, weight 113 pounds, BMI 18.8. This is a well-developed well-nourished thin white female who is alert and oriented times 3 in no acute distress. HEENT: Within normal limits. NECK: Supple without mass or thyromegaly. CHEST AND LUNGS: Clear to auscultation. HEART: Regular rate and rhythm. BREASTS: Are without mass or discharge. AXILLARY EXAM: Negative for adenopathy. BACK: Negative for CVA tenderness. ABDOMEN: Soft, nontender, with a fullness in the supraumbilical region right of the midline. This area measures approximately 10 x 5 cm and is nontender. The area of the palpable fullness is pulsating. She is extremely thin and it is difficult to determine if this is a physiologic variant that makes organs more palpable. PELVIC EXAM: Normal external genitalia with mild to moderate atrophy. Cervix and vagina appear reveals a thick slightly yellowish discharge without odor. There is no cervical motion tenderness. The cervix does not appear inflamed. There is no evidence of prolapse. The uterus is midposition, nongravid size and nontender. There are no palpable adnexal masses or tenderness. RECTAL EXAM: rectovaginal exam is negative for mass or tenderness and is negative for occult blood. EXTREMITIES: Nontender. IMPRESSION: 1. 56-year-old menopausal female with 1 month history of thick yellowish discharge which is seen on exam today. Differential diagnosis will include Ava vaginitis, bacterial vaginosis, and less likely GC or chlamydia. 2. Palpable right upper quadrant abdominal fullness. Differential diagnosis will include easily palpated organs because of her very thin body habitus, palpable aorta, abnormal abdominal neoplasm or possible aortic aneurysm. 3. History of uterine fibroids which are not palpable on exam today. 4. History of osteopenia. PLAN: 1. Pap smear cotest was performed. 2. Self breast awareness was discussed with the patient. We have also discussed symptoms associated with inflammatory breast cancer. 3. Screening mammogram will be done today. 4. Abdominal ultrasound was recommended in the order slip was given to the patient for this. Previous abdominal ultrasound was done 2 years ago and was unremarkable. 5. We will plan on repeating bone density testing in 2021. 6. She was advised to return in one year for her annual well woman exam and as needed.
[2021-04-02 14:28] LABS: Gardnerella Positive (Negative); Source Vagina; Trichomonas Negative (Negative)
[2021-04-02 15:08] LABS: C. trachomatis,PCR Negative (Neg,Equiv); Chlamydia trachomatis Source Vagina; N. gonorrhoeae,PCR Negative (Neg,Equiv); Neisseria Source Vagina
--- NOTE | 2021-04-03 10:51 | WWPN ---
[facility] - PROGRESS NOTE The patient had an affirm vaginitis panel done on 04/01/2021, which was positive for Gardnerella and negative for Ava and Trichomonas. The patient was notified by phone. She was complaining of a vaginal discharge. IMPRESSION: Bacterial vaginosis. PLAN: The patient was treated with Metro gel vag 1 applicator into the vagina q.h.s. x5 days. [facility]. GC and chlamydia testing are also pending. MMODL / IJN: [id number] /
--- NOTE | 2021-04-03 11:48 | MM ---
Reason for exam: screening (asymptomatic). Last mammogram was performed 1 year and 1 month ago. History: Patient is postmenopausal and had first child at age 33. Family history of breast cancer in paternal grandmother at age 72. Benign US breast aspiration single LT of the left breast, December 07, 2017. Physical Findings: A clinical breast exam by your physician is recommended on an annual basis and results should be correlated with mammographic findings. MG 3D Screening Mammo W/Cad Bilateral CC and MLO view(s) were taken. Prior study comparison: February 20, 2020, bilateral MG 3d screening mammo w/cad. February 14, 2019, bilateral MG 3d screening mammo w/cad. The breast tissue is extremely dense which could obscure a lesion on mammography. Finding: There is a 6 mm equal density (isodense), partially obscured round mass located 0.6 cm from the nipple in the subareolar position of the left breast. This is changed. New finding since February 20, 2020 and February 14, 2019. ASSESSMENT: Incomplete: need additional imaging evaluation, BI-RAD 0 RECOMMENDATION: Special view mammogram of the left breast. If lesion persists on supplemental views, image directed ultrasound is recommended. [facility] will attempt to contact patient to return for supplemental views and ultrasound if indicated.
== END ==
LOC: WWCWWP 10:30
PROVIDERS: ATTEND Obstetrics & Gynecology
DX: Z12.31 Encounter for screening mammogram for malignant neoplasm of breast (principal); Z01.419 Encounter for gynecological examination (general) (routine) without abnormal findings; N89.8 Other specified noninflammatory disorders of vagina; Z87.39 Personal history of other diseases of the musculoskeletal system and connective tissue; Z80.3 Family history of malignant neoplasm of breast; Z87.42 Personal history of other diseases of the female genital tract
CPT/HCPCS: 77063; 77067; 87480; 87491; 87510; 87591; 87660

== ENCOUNTER → 2021-04-04 | Outpatient (CLI) | payer BC ==
--- NOTE | 2021-04-04 11:17 | MM ---
Reason for exam: additional evaluation requested from abnormal screening. Last mammogram was performed less than 1 month ago. History: Patient is postmenopausal and had first child at age 33. Family history of breast cancer in paternal grandmother at age 72. Benign US breast aspiration single LT of the left breast, December 07, 2017. Physical Findings: Nurse did not find any significant physical abnormalities on exam. MG 3D Work Up W/Cad LT Spot compression CC and LM view(s) were taken of the left breast. Prior study comparison: April 01, 2021, bilateral MG 3d screening mammo w/cad. February 20, 2020, bilateral MG 3d screening mammo w/cad. The breast tissue is heterogeneously dense. This may lower the sensitivity of mammography. This finding is changed when compared with previous exams. These results were verbally communicated with the patient and result sheet given to the patient on 04/04/21. ASSESSMENT: Incomplete: need additional imaging evaluation, BI-RAD 0 RECOMMENDATION: Ultrasound of the left breast.
--- NOTE | 2021-04-04 11:18 | USB ---
Reason for exam: additional evaluation requested from abnormal screening. History: Patient is postmenopausal and had first child at age 33. Family history of breast cancer in paternal grandmother at age 72. Benign US breast aspiration single LT of the left breast, December 07, 2017. US Breast Workup Limited LT Left limited breast ultrasound including focal area of concern, retroareolar and axilla demonstrates a 0.6 x 0.7 x 0.5cm oval, cystic lesion at 5 o'clock and a 2.3 x 1.1 x 0.4cm lymph node at the axilla. These results were verbally communicated with the patient and result sheet given to the patient on 04/04/21. ASSESSMENT: Benign, BI-RAD 2 RECOMMENDATION: Return to routine screening mammogram schedule for both breasts.
== END | disposition home or self-care (01) ==
LOC: RADMAMWWP 07:17
PROVIDERS: ATTEND Obstetrics & Gynecology
DX: N60.02 Solitary cyst of left breast (principal); Z78.0 Asymptomatic menopausal state; Z80.3 Family history of malignant neoplasm of breast
CPT/HCPCS: 77061; 77065

== ENCOUNTER → 2021-04-09 | Outpatient (CLI) | payer BC ==
--- NOTE | 2021-04-09 14:01 | US ---
EXAMINATION TYPE: US abdomen limited DATE OF EXAM: 04/09/2021 COMPARISON: 02/10/2019 abdomen ultrasound CLINICAL HISTORY: R19.01 ABD MASS. Per order "abdomen mass supraumbilical right of midline, Attn to p alpable mass" Area directed by order scanned. No prominent masses or lesions seen. Distal Aorta visualized and ap pears anteriorly about 1.1 cm from skin line with normal measurements = 1.3 x 1.8 cm. IMPRESSION: 1. No suspicious abnormalities within the subcutaneous tissues. The aorta is just below the subcutane ous tissue and may account for the pulsatile mass on examination.
--- NOTE | 2021-04-10 14:28 | P.PN ---
Progress Note - Text Progress Note Date: 04/10/21 Abdominal ultrasound was done on 04/09/21 because of the palpable pulsating fullness palpated in the right supraumbilical region. The ultrasound was unremarkable. The aorta is seen near the anterior abdominal wall without any suspicious masses. Also, the pap smear and high risk HPV testing done on 04/01/21 were both negative. These results were given to the patient by phone. The patient is very thin which explains why the aorta is palpable on abdominal exam. No further workup is needed.
== END | disposition home or self-care (01) ==
LOC: RADUSWWP 13:25
PROVIDERS: ATTEND Obstetrics & Gynecology
DX: R19.01 Right upper quadrant abdominal swelling, mass and lump (principal)
CPT/HCPCS: 76705

== ENCOUNTER → 2021-05-20 | Outpatient (CLI) | payer BC ==
[2021-05-20 10:54] VITALS: BP 154/81; PULSE 86; RESP 18; TEMP 98.3
--- NOTE | 2021-05-20 11:51 | P.PN ---
Progress Note - Text Progress Note Date: 05/20/21 Chief Complaint: Anterior vaginal redness and irritation 2 weeks HPI: This is a 56-year-old with an LMP of 2019. During the past 2 weeks she has noticed some redness and irritation just inside the inner lips of the vaginal opening. She had previously noticed some vaginal dryness with sexual intercourse despite using lubrication, but she has not been sexually active for at least 2 weeks now. She was recently treated for bacterial vaginosis about 5 weeks ago. She thinks she may still notice a very slight yellowish discharge but not all the time. She can see a reddish small cervical just inside of the vaginal opening. The irritation seems to be mostly at the inner anterior part of the vagina and does not seem to be greater on one side. She denies any new sexual partners and denies using any new creams or products to the vagina or vulva. ROS: She denies fever. She also denies respiratory, cardiac, or GI problems. : As in the HPI. She denies urinary frequency, urinary urgency, or dysuria. PE: Blood pressure: 154/81, Height: 5 feet 6 inches, Weight: 113 pounds, T emperature: 3, Pulse: 86. Pulse oximeter 98%. This is a well developed, well nourished, white female who is alert and orientedx3, in no acute distress. External genitalia reveals mild to moderate atrophy without external lesions. Upon spreading the labia, there is superficial abrasion-type redness between the urethral opening and clitoris. No ulceration. The urethral opening has redness in appears slightly inflamed especially between the 3:00 and 6 o'clock position of the opening. This redness seems to be what she was noticing when looking at the vaginal opening. Cervix and vagina appear normal with mild to moderate atrophy. There is no unusual discharge. Impression: 1. 56-year-old menopausal female with a 2 week history of redness near the anterior introitus and redness at the urethral opening. Slight urethritis and probable vaginitis secondary to atrophy with vaginal dryness with intercourse. At this side doubt infection, but urinary tract infection will be ruled out sinc e they urethral opening appears inflamed. Plan: 1. Urine has been obtained for urinalysis and culture with sensitivity. 2. Trial of Estrace vaginal cream. She will use a small amount of the irrita luis area daily for 7 days and insert 1 g into the vagina twice weekly even beyond the 7 days. 3. GC and chlamydia testing were negative from her recent visit and she was already treated for bacterial vaginosis since the affirm vaginitis panel was positive for Gardnerella. 4. She was instructed to call if she is having worsening symptoms or problems. She will otherwise return in 1 month for a recheck. Time spent with the patient: 20 minutes
[2021-05-20 16:52] LABS: Appearance,Urine Clear (Clear); Bilirubin,Urine Negative (Negative); Blood,Urine Negative (Negative); Color,Urine Light Yellow; Glucose,Urine (UA) Negative (Negative); Ketones,Urine Negative (Negative); Leukocyte Esterase,Urine Negative (Negative); Nitrite,Urine Negative (Negative); Protein,Urine Negative (Negative); Urobilinogen,Urine <2.0 mg/dL (<2.0)
--- NOTE | 2021-05-22 10:31 | P.PN ---
Progress Note - Text Progress Note Date: 05/22/21 Urinalysis from 05/20/21 was negative. The patient was notified by phone. The patient has started the estrogen vaginal cream. Await urine culture. She is to call if problems. She will return in 3-4 weeks for a recheck.
== END ==
LOC: WWCWWP 10:29
PROVIDERS: ATTEND Obstetrics & Gynecology
DX: N34.2 Other urethritis (principal)
CPT/HCPCS: 81003; 87086

== ENCOUNTER → 2021-06-17 | Outpatient (CLI) | payer BC ==
[2021-06-17 08:44] VITALS: BP 150/90; PULSE 86; RESP 18; TEMP 97.8
--- NOTE | 2021-06-17 09:36 | P.PN ---
Progress Note - Text Progress Note Date: 06/17/21 Chief Complaint: Redness around urethral opening HPI: This is a 56-year-old with an LMP of 2019. The patient started having issues with irritation around the urethra back in March. In March she did have discharge and was found to have bacterial vaginosis which was treated. GC and chlamydia testing at that time were negative. Last month, she continued to have irritation around the urethral opening and had a positive urine culture test which grew Citrobacter koseri which was sensitive to nitrofurantoin. She was treated with Macrobid. She was also started on Premarin vaginal cream which she was to apply around the urethral opening and into the vagina 2 times weekly. She currently denies any urinary tract infection symptoms, however she still can see some redness around the urethral opening. She believes it is somewhat better and is unsure if the Macrobid or the Premarin cream helped. ROS: See HPI. Otherwise unremarkable. PE: Blood pressure: 150/90, Height: 5 feet 5 inches, Weight: 112 pounds, Temperature: 97.8, Pulse: 86. Pulse oximeter 99%. This is a well developed, well nourished, white female who is alert and orientedx3, in no acute distress. External genitalia reveals mild atrophy without lesions. There is slight erythema around the urethral opening which has the appearance of slightly scratched mucosal tissue without ulceration. Cervix and vagina revealed mild atrophy without lesions and there is no unusual discharge. Impression: 1. 56-year-old menopausal female with periurethral erythema which is slightly improved after treatment of a UTI and use of Premarin vaginal cream. 2. No Urinary symptoms Plan: 1. Urine has been obtained for urinalysis and culture with sensitivity. 2. Continue to use the Premarin vaginal cream twice weekly. 3. If she is having worsening redness or change in symptoms she was instructed to call. If the redness seems to gradually decrease she can consider discontinuing the Premarin vaginal cream if the redness is gone. Time spent with the patient: 15 minutes
[2021-06-17 13:14] LABS: Appearance,Urine Clear (Clear); Bilirubin,Urine Negative (Negative); Blood,Urine Negative (Negative); Color,Urine Light Yellow; Glucose,Urine (UA) Negative (Negative); Ketones,Urine Negative (Negative); Leukocyte Esterase,Urine Negative (Negative); Nitrite,Urine Negative (Negative); Protein,Urine Negative (Negative); Specific Gravity,Urine 1.003 (1.001-1.035); Urobilinogen,Urine <2.0 mg/dL (<2.0)
--- NOTE | 2021-06-18 10:53 | P.PN ---
Progress Note - Text Progress Note Date: 06/18/21 OUTPATIENT FOLLOW-UP NOTE TEST(S)/RESULTS: Urinalysis done on 06/17/2021 was negative. Urine culture is pending. METHOD OF NOTIFICATION: The patient was notified by phone. PATIENT COMMENTS: DIAGNOSIS: Negative urinalysis. DISCUSSION: Her previous urine test had a negative urinalysis which did have greater than 100,000 of a particular bacteria. This was treated. PLAN: Await urine culture.
== END | disposition home or self-care (01) ==
LOC: WWCWWP 08:29
PROVIDERS: ATTEND Obstetrics & Gynecology
DX: N39.0 Urinary tract infection, site not specified (principal)
CPT/HCPCS: 81003; 87086

== ENCOUNTER → 2022-02-03 | Outpatient (CLI) | payer BC ==
--- NOTE | 2022-02-03 14:14 | US ---
EXAMINATION TYPE: US pelvic complete DATE OF EXAM: 02/03/2022 COMPARISON: NONE CLINICAL HISTORY: R10.9 ABDOMINAL PAIN. Pt states LLQ pain and change in bowel habits TECHNIQUE: Transabdominal (TA). Transabdominal sonographic images of the pelvis were acquired. Date of LMP: 2018 EXAM MEASUREMENTS: Uterus: 7.1 x 3.5 x 5.7 cm Endometrial Stripe: 0.6 cm Right Ovary: 2.3 x 1.8 x 1.3 cm Left Ovary: 1.7 x 1.4 x 0.8 cm 1. 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 Endometrium: Thickness is within normal limits. There is some echogenicity within the endometrial canal. Correlate for hemorrhage 3. Right Ovary: wnl 4. Left Ovary: wnl 5. Bilateral Adnexa: wnl 6. Posterior cul-de-sac: wnl IMPRESSION: 1. Uterine fibroids
== END | disposition home or self-care (01) ==
LOC: RADUSWWP 12:08
PROVIDERS: ATTEND Internal Medicine Geriatric Medicine
DX: D25.9 Leiomyoma of uterus, unspecified (principal)
CPT/HCPCS: 76856

== ENCOUNTER 2022-04-29 07:49 | Day surgery (SDC) | payer BC ==
[~2022-04-29 07:49] MED LIST: LACTATED RINGERS 1,000 ML IV SCH
[2022-04-29 08:23] VITALS: TEMP 97.1
[2022-04-29] MEDS ORDERED: PROPOFOL 10 MG/ML 20 ML VIAL IV ONE (09:05)
--- NOTE | 2022-04-29 09:35 | P.PCN ---
Date of Procedure: 04/29/22 Procedure(s) Performed: BRIEF HISTORY: Patient is a 57-year-old pleasant white female scheduled for an elective colonoscopy as a part of change in bowel habits for the last 6 months duration. PROCEDURE PERFORMED: Colonoscopy. PREOPERATIVE DIAGNOSIS: Change in bowel habits. IV sedation per Anesthesia. PROCEDURE: After informed consent was obtained, the patient, was brought into the endoscopy unit. IV sedation was administered by Anesthesia under continuous monitoring. Digital rectal examination was normal. Initially the Olympus CF-160 flexible video colonoscope was then inserted in the rectum, gradually advanced into the cecum without any difficulty. Careful examination was performed as the scope was gradually being withdrawn. Ileocecal valve and the appendiceal orifice were visualized and appeared normal. Prep was excellent. Mucosa of the cecum, ascending colon, transverse colon, descending colon, sigmoid colon, and rectum appeared normal. Retroflexion was performed in the rectum and small internal hemorrhoids were seen. The patient tolerated the procedure well. IMPRESSION: Normal-appearing colon from rectum to cecum with no evidence of colorectal neoplasia . Small internal hemorrhoids. RECOMMENDATIONS: Findings of this examination were discussed with the patient well as her family. She was advised to continue with osmotic laxatives, high- fiber diet and regulate bowel movements. Recommend repeat screening colonoscopy in 10 years..
[2022-04-29 10:21] VITALS: BP 131/91; PULSE 80; RESP 16
== END 2022-04-29 10:30 | disposition home or self-care (01) ==
LOC: ORWHC2ENDO 07:49
PROVIDERS: ATTEND Internal Medicine Gastroenterology
DX: K64.8 Other hemorrhoids (principal); Z79.899 Other long term (current) drug therapy
CPT/HCPCS: 45378; J2704

== ENCOUNTER → 2022-05-12 | Outpatient (CLI) | payer BC ==
[2022-05-12 20:29] LABS: Gliadin AB IgA, Deaminated NEGATIVE (NEGATIVE); Gliadin AB IgA, Unit 2.2 U/mL; Gliadin AB IgG, Deaminated NEGATIVE (NEGATIVE); Gliadin AB IgG, Unit <0.4 U/mL
== END | disposition home or self-care (01) ==
LOC: LABWHC1 13:56
PROVIDERS: ATTEND Internal Medicine Gastroenterology
DX: R14.0 Abdominal distension (gaseous) (principal)
CPT/HCPCS: 36415; 83516

== ENCOUNTER → 2022-05-12 | Outpatient (CLI) | payer BC ==
[2022-05-12 12:51] VITALS: BP 157/80; PULSE 82; RESP 17; TEMP 97.8
--- NOTE | 2022-05-12 13:41 | P.HPOB ---
History of Present Illness H&P Date: 05/12/22 Chief Complaint: The patient is here for her routine gynecologic exam and ma mmogram. This is a 57-year-old with an LMP of 2019. The patient still has occasional periurethral irritation. She had previously used some Premarin vaginal cream for this, but has not been using it recently. The irritation continues to be intermittent and is currently not bothering her today. She has been having some issues with abdominal bloating this past summer and has undergone a workup which has included a pelvic ultrasound on 02/03/2022 which showed uterine fibroids measuring 3.5 and 2.8 cm. This is not significantly changed from her previous ultrasound. She has also had a CT scan of the abdomen and pelvis and colonoscopy which showed a stool in the colon according to the patient. She is going to be tested for celiac disease. Review of Systems The patient has lost 3 pounds over the last year. She denies respiratory, cardiac, or G.I. problems. Past Medical History Past Medical History: No Reported History Additional Past Medical History / Comment(s): Osteopenia. Rosacea. 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 History of uterine fibroids. History of Any Multi-Drug Resistant Organisms: None Reported Past Surgical History: No Surgical Hx Reported Additional Past Surgical History / Comment(s): colonoscopy 2021(next after 10yr). Pedunculated fibroid removed vaginally 2005. Past Anesthesia/Blood Transfusion Reactions: No Reported Reaction, Motion Sickness Past Psychological History: No Psychological Hx Reported Smoking Status: Never smoker Past Alcohol Use History: None Reported Past Drug Use History: None Reported Additional History: She has been since 1988 and is sexually active. 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 - Past Family History Mother Family Medical History: Cancer Additional Family Medical History / Comment(s): metastatic lung cancer Father Family Medical History: Hypertension Additional Family Medical History / Comment(s): Paternal grandmother had breast cancer and hypertension. Medications and Allergies Home Medications Medication Instructions Recorded Confirmed Type Azelaic Acid [Finacea] 1 each TOPICAL BID 02/14/16 05/12/22 History Multivitamins, Thera [Multivitamin 1 each PO DAILY 12/03/17 05/12/22 History (formulary)] Ibuprofen [Motrin Ib] 200 mg PO DAILY PRN 02/15/18 05/12/22 History Cetirizine HCl [Zyrtec] 10 mg PO HS PRN 04/01/21 05/12/22 History Cholecalciferol [Vitamin D3 (25 25 mcg PO DAILY 05/12/22 05/12/22 History Mcg = 1000 Iu)] Allergies Allergy/AdvReac Type Severity Reaction Status Date / Time No Known Allergies Allergy Verified 05/12/22 12:47 Exam Vital Signs Temp Pulse Resp BP Pulse Ox 05/12/22 12:48 97.8 F 82 17 157/80 99 Intake and Output 05/11/22 05/12/22 05/12/22 22:59 06:59 14:59 Other: Weight 49.895 kg Height 5 feet 5 inches, weight 110 pounds, BMI 18.3. This is a well-developed well-nourished thin white female who is alert and oriented times 3 in no acute distress. HEENT: Within normal limits. NECK: Supple without mass or thyromegaly. CHEST AND LUNGS: Clear to auscultation. HEART: Regular rate and rhythm. BREASTS: Are without mass or discharge. There is moderate fibrous-type changes throughout the breast without dominant mass. AXILLARY EXAM: Negative for adenopathy. BACK: Negative for CVA tenderness. ABDOMEN: Soft, nontender, without palpable masses. PELVIC EXAM: Normal external genitalia with mild to moderate atrophy. There is mild erythema between the urethral opening and the labia at the apex. Cervix and vagina appear normal mild atrophy. There is no unusual discharge. There is no evidence of prolapse. The uterus is midposition, nongravid size and nontender. The uterus has a slightly irregular shape to it consistent with her uterine fibroids. There are no palpable adnexal masses or tenderness. RECTAL EXAM: Rectovaginal exam is negative for mass or tenderness and is negative for occult blood. EXTREMITIES: Nontender. IMPRESSION: 1. 57-year-old menopausal female with stable uterine fibroids. 2. Mild mucosal irritation near the urethral opening possibly related to atrophy and also may be related to sexual activity. 3. History of osteopenia. PLAN: 1. Pap smear was deferred since she had a negative Pap smear cotest on 04/01/2021. 2. Breast awareness was discussed with the patient. 3. Screening mammogram will be done today. 4. I recommended that she resume using Premarin vaginal cream 1 g just inside of the vaginal opening 2 times weekly. The electronic prescription will be sent to [facility] on [facility]. 5. Osteoporosis prevention was discussed. Bone density testing was done through her PCP on 07/21/2019 and showed osteopenia. Repeat bone density testing was recommended. The order slip will be given to the patient. 6. She will try to pay attention to her diet to see if this increases abdominal bloating or periurethral irritation. She is planning to undergo testing for celiac disease because of her GI symptoms. 7. She was advised to return in one year for her annual well woman exam and as needed.
--- NOTE | 2022-05-13 08:20 | MM ---
Reason for Exam: Screening (asymptomatic). Last mammogram was performed 1 year(s) and 2 month(s) ago. Patient History: Menarche at age 11. First Full-Term at age 33. Late child-bearing (after 30). Postmenopausal. 12/07/2017, Benign Cyst Aspiration on the left side. Paternal grandmother had breast cancer, age 72. Risk Values: Latricia 5 year model risk: 1.9%. NCI Lifetime model risk: 10.2%. Prior Study Comparison: 02/20/2020 Bilateral Screening Mammogram, [facility]. 04/01/2021 Bilateral Screening Mammogram, [facility]. 04/04/2021 Left Diagnostic Mammogram, [facility]. Tissue Density: The breast tissue is extremely dense which could obscure a lesion on mammography. Findings: Analyzed By CAD. There is no suspicious group of microcalcifications or new suspicious mass in either breast. Overall Assessment: Benign, BI-RAD 2 Management: Screening Mammogram of both breasts in 1 year. A clinical breast exam by your physician is recommended on an annual basis and results should be correlated with mammographic findings. Electronically signed and approved by: Kevin Mccann M.D. Radiologis
== END ==
LOC: WWCWWP 12:23
PROVIDERS: ATTEND Obstetrics & Gynecology
DX: Z01.419 Encounter for gynecological examination (general) (routine) without abnormal findings (principal); Z12.31 Encounter for screening mammogram for malignant neoplasm of breast; Z80.3 Family history of malignant neoplasm of breast; Z87.39 Personal history of other diseases of the musculoskeletal system and connective tissue; D25.9 Leiomyoma of uterus, unspecified
CPT/HCPCS: 77063; 77067

== ENCOUNTER → 2022-05-27 | Outpatient (CLI) | payer BC ==
--- NOTE | 2022-05-29 08:40 | BD ---
EXAMINATION TYPE: Axial Bone Density DATE OF EXAM: 05/27/2022 COMPARISON: NONE CLINICAL HISTORY: 57 year old Female. ICD-10 CODE: Z78.0 ASYMPTOMATIC MENOPAUSAL STATE Height: 65.5 Weight: 108.0 FRAX RISK QUESTIONS: Alcohol (3 or more units per day): no Family History (Parent hip fracture): no Glucocorticoids (More than 3mos): no (Ex: prednisone, prednisolone, methylprednisolone, dexamethasone, and hydrocortisone). History of Fracture in Adulthood: yes Secondary Osteoporosis: 1. Type 1 Diabetes: no 2. Hyperthyroidism: no 3. Menopause before 45: no 4. Malnutrition: no 5. Chronic liver disease: no Rheumatoid Arthritis: no Current Tobacco Use: no RISK FACTORS HISTORY OF: Surgery to Spine/Hip(right/left)/Wrist (right/left): no Family History of Osteoporosis: yes Active: yes Diet low in dairy products/other sources of calcium: no Postmenopausal woman: yes Lost more than 2 inches in height since high school: no MEDICATIONS: Additional History: EXAM MEASUREMENTS: Bone mineral densitometry was performed using the [employer] System. Bone mineral density as measured about the Lumbar spine is: ----- L1-L4(G/cm2): 0.800 T Score Values are as follows: ----- L1: -3.5 ----- L2: -3.1 ----- L3: -3.2 ----- L4: -3.0 ----- L1-L4: -3.2 Bone mineral density has: decreased -12.9 % since study of: 07.21.2019 Bone mineral density about the R hip (g/cm2): 0.727 Bone mineral density about the L hip (g/cm2): .0744 T Score values are as follows: -----R Neck: -2.2 -----L Neck: -2.1 -----R Total: -2.7 -----L Total: -2.5 Bone mineral density has: decreased -9.2 % since study of: 07.21.2019 FRAX%s: The graph provided illustrates a 7.9% chance for a major osteoporotic fx and a 2.5% chance fo r the hips probability for fx in 10 years time. IMPRESSION: Osteoporosis (T Score less than -2.5). There is increased fracture risk and therapy is usually indicated based on age. Re-Screen 1-2 years. NOTE: T-SCORE=SD OF THE YOUNG ADULT MEAN.
--- NOTE | 2022-06-02 17:48 | P.PN ---
Progress Note - Text Progress Note Date: 06/02/22 OUTPATIENT FOLLOW-UP NOTE TEST(S)/RESULTS: Bone density test done on 05/27/2022 shows osteoporosis with approximately a 10% decrease since her bone density test. METHOD OF NOTIFICATION: The patient was notified by phone. PATIENT COMMENTS: Her mother had osteoporosis. DIAGNOSIS: Osteoporosis DISCUSSION: I have recommended medication for osteoporosis to help strengthen bones and to decrease the risk for bone fracture. We have discussed possible side effects with alendronate including osteonecrosis of the jaw if upcoming jaw surgeries or extensive dental surgeries involving the jaw. We have also discussed the risk of esophageal ulceration especially if taking them properly. I also stressed the importance of adequate calcium, vitamin D, and regular exercise. PLAN: Information on osteoporosis and Fosamax will be mailed to the patient. I will also send her a copy of the bone density test as well as any lab order slip for serum creatinine and serum calcium. If she chooses to proceed with this medication, she will have the blood tests done and call me so we can start her on this medication. She states she also will be seeing Dr. Estrada, her PCP, in the near future. She states he usually does routine blood work and she will also discuss this diagnosis with him as well. All of her questions were answered.
== END | disposition home or self-care (01) ==
LOC: RADBDWWP 14:48
PROVIDERS: ATTEND Obstetrics & Gynecology
DX: M81.0 Age-related osteoporosis without current pathological fracture (principal); Z78.0 Asymptomatic menopausal state
CPT/HCPCS: 77080

== ENCOUNTER → 2023-05-25 | Outpatient (CLI) | payer BC ==
[2023-05-25 08:26] VITALS: BP 156/90; PULSE 91; RESP 17; TEMP 97.8
--- NOTE | 2023-05-25 09:03 | P.HPOB ---
History of Present Illness H&P Date: 05/25/23 Chief Complaint: The patient is here for her routine gynecologic exam and ma mmogram. This is a 58-year-old with an LMP of 2018. The patient states she has been noticing a red lesion at the introitus. This does not cause any pain and she denies any postmenopausal bleeding. She states she does notice vaginal dryness with intercourse but this is usually improved with a lubricant. She is otherwise without complaints. She was started on Fosamax for osteoporosis about [address] Estrada, her PCP. Review of Systems The patient has gained 4 pounds over the last year. She denies respiratory, cardiac, or G.I. problems. Past Medical History Past Medical History: No Reported History Additional Past Medical History / Comment(s): Osteoporosis, on Fosamax since 2021. Rosacea. 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 History of uterine fibroids. History of Any Multi-Drug Resistant Organisms: None Reported Past Surgical History: No Surgical Hx Reported Additional Past Surgical History / Comment(s): colonoscopy 2021(next after 10yr). Pedunculated fibroid removed vaginally 2005. Past Anesthesia/Blood Transfusion Reactions: No Reported Reaction, Motion Sickness Past Psychological History: No Psychological Hx Reported Smoking Status: Never smoker Past Alcohol Use History: None Reported Past Drug Use History: None Reported Additional History: She has been since 1988 and is sexually active. 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 - Past Family History Mother Family Medical History: Cancer Additional Family Medical History / Comment(s): metastatic lung cancer Father Family Medical History: Hypertension Additional Family Medical History / Comment(s): Paternal grandmother had breast cancer and hypertension. Medications and Allergies Home Medications Medication Instructions Recorded Confirmed Type Azelaic Acid [Finacea] 1 each TOPICAL BID 02/14/16 05/25/23 History Multivitamins, Thera [Multivitamin 1 each PO DAILY 12/03/17 05/25/23 History (formulary)] Ibuprofen [Motrin Ib] 200 mg PO DAILY PRN 02/15/18 05/25/23 History Cetirizine HCl [Zyrtec] 10 mg PO HS PRN 04/01/21 05/25/23 History Cholecalciferol [Vitamin D3 (25 25 mcg PO DAILY 05/12/22 05/25/23 History Mcg = 1000 Iu)] Estrogens, Conjugated Cream 1 applic VAGINAL DIRECTED #42.5 05/12/22 05/25/23 Rx [Premarin Vaginal Cream] gm Alendronate Sodium [Fosamax] 70 mg PO WEEKLY 05/25/23 05/25/23 History Allergies Allergy/AdvReac Type Severity Reaction Status Date / Time No Known Allergies Allergy Verified 05/25/23 08:01 Exam Vital Signs Temp Pulse Resp BP Pulse Ox 05/25/23 08:02 97.8 F 91 17 156/90 98 Intake and Output 05/24/23 05/25/23 05/25/23 22:59 06:59 14:59 Other: Weight 51.71 kg Height 5 feet 6 inches, weight 114 pounds, BMI 18.4. This is a well-developed well-nourished white female who is alert and oriented times 3 in no acute distress. HEENT: Within normal limits. NECK: Supple without mass or thyromegaly. CHEST AND LUNGS: Clear to auscultation. HEART: Regular rate and rhythm. BREASTS: Are without mass or discharge. Moderate fibrocystic changes throughout the breasts. There is a very superficial point nodularity of the fibrocystic changes noted at the 5 o'clock position of the left breast which the patient states she has noticed for several years. She states this has been followed with mammograms for several years as well. AXILLARY EXAM: Negative for adenopathy. BACK: Negative for CVA tenderness. ABDOMEN: Soft, nontender, without palpable masses. PELVIC EXAM: Normal external genitalia with mild to moderate atrophy. Near the introitus there is a outpouching of the mucosa consistent with a remnant of the hymeneal ring that has a reddish lesion at its tip which was initially seen at the introitus, but after the speculum examination it went back approximately 1-2 cm from the introitus. This is at approximately the 7 o'clock position of the vagina. The reddish lesion measures approximately 3 x 2 mm and the mucosal outpouching measures approximately 9 x 3 x 3 mm. Cervix and vagina otherwise appear normal mild atrophy. There is no unusual discharge. There is no evidence of prolapse. The uterus is midposition, nongravid size and nontender. The uterus is somewhat firm with an irregularity palpable at the right side consistent with a right subserosal fibroid measuring approximately 2.5 cm. There are no palpable adnexal masses or tenderness. RECTAL EXAM: Rectovaginal exam is negative for mass or tenderness and is negative for occult blood. EXTREMITIES: Nontender. IMPRESSION: 1. 58-year-old menopausal female with known fibroid uterus which is asymp tomatic. Her most recent ultrasound on 02/03/2022 showed uterine fibroids measuring 3.5 and 2.8 cm. This is consistent with her exam today. 2. Right vaginal mucosal red lesion measuring approximately 3 x 2 mm. This seems to be an a remnant of the hymeneal ring at approximately the 7 o'clock position near the introitus. 3. History of osteoporosis and she has been on Fosamax for approximately 1 year. PLAN: 1. Pap smear was deferred since she had a negative Pap smear cotest on 04/01/2021. 2. Self breast awareness was discussed with the patient. We have also discussed symptoms associated with inflammatory breast cancer. 3. Screening mammogram will be done today. 4. Osteoporosis management was discussed. I have stressed the importance of adequate calcium, vitamin D and regular exercise. Recommended amounts of calcium and vitamin D were also discussed. She will continue Fosamax as prescribed by her PCP. We will plan on repeating the bone density test in 1 year. 5. We will plan on removing the red vaginal mucosal lesion. The appointment was tentatively set for 06/23/2023. 6. She states she has not been using the estrogen vaginal cream and prefers to just use lubrication for vaginal dryness. 7. She was advised to return in one year for her annual well woman exam and as above.
--- NOTE | 2023-05-25 14:36 | MM ---
Reason for Exam: Screening (asymptomatic). Last screening mammogram was performed 12 month(s) ago. Patient History: Menarche at age 11. First Full-Term at age 33. Late child-bearing (after 30). Postmenopausal. 12/07/2017, Benign Cyst Aspiration on the left side. Paternal grandmother had breast cancer, age 72. Risk Values: Latricia 5 year model risk: 2.0%. NCI Lifetime model risk: 10.0%. Prior Study Comparison: 04/01/2021 Bilateral Screening Mammogram, [facility]. 04/04/2021 Left Diagnostic Mammogram, [facility]. 05/12/2022 Bilateral MG 3D screening mammo w/cad, [facility]. Tissue Density: The breast tissue is extremely dense which could obscure a lesion on mammography. Findings: Analyzed By CAD. Left breast: medial aspect in CC view measuring 3.9 cm the nipple is a asymmetry measuring 4 mm which may be posterior nipple line on CC view. slice 23/40 Right breast :There is no suspicious group of microcalcifications or new suspicious mass. Overall Assessment: Incomplete: need additional imaging evaluation, BI-RAD 0 Management: Diagnostic Breast Ultrasound of the left breast. [facility] will attempt to contact patient to return for supplemental views and ultrasound if indicated. Patient should continue monthly self-breast exams. A clinical breast exam by your physician is recommended on an annual basis. This exam should not preclude additional follow-up of suspicious palpable abnormalities. Note on Latricia scores and lifetime risk: 1. A Latricia score greater than 3% is considered moderate risk. If this is the case, consider specialist referral to assess eligibility for a risk reducing agent. 2. If overall lifetime risk for the development of breast cancer is 20% or higher, the patient may qualify for future screening with alternating mammogram and breast MRI. Electronically signed and approved by: Dada Hook DO
== END ==
LOC: WWCWWP 07:45
PROVIDERS: ATTEND Obstetrics & Gynecology
DX: Z12.31 Encounter for screening mammogram for malignant neoplasm of breast (principal); D25.9 Leiomyoma of uterus, unspecified; M81.0 Age-related osteoporosis without current pathological fracture; Z78.0 Asymptomatic menopausal state; Z80.3 Family history of malignant neoplasm of breast; Z86.018 Personal history of other benign neoplasm
CPT/HCPCS: 77063; 77067

== ENCOUNTER → 2023-05-31 | Outpatient (CLI) | payer BC ==
--- NOTE | 2023-05-31 14:56 | USB ---
Reason for Exam: Additional evaluation requested from abnormal screening. Patient History: Menarche at age 11. First Full-Term at age 33. Late child-bearing (after 30). Postmenopausal. 12/07/2017, Benign Cyst Aspiration on the left side. Paternal grandmother had breast cancer, age 72. Risk Values: Latricia 5 year model risk: 2.0%. NCI Lifetime model risk: 10.0%. Technique: Method: Targeted. Prior Study Comparison: 04/04/2021 Left Diagnostic Mammogram, [facility]. 04/04/2021 Left Diagnostic Ultrasound, [facility]. 05/12/2022 Bilateral MG 3D screening mammo w/cad, [facility]. 05/25/2023 Bilateral MG 3D screening mammo w/cad, [facility]. Findings: The medial section of the breast of the left breast, the axilla of the left breast and the retroareolar of the left breast were scanned. Technique utilized:US breast workup limited LT Image; Ultrasound imaging of: Area of concern, retroareolar region and axilla. There is a hypoechoic lesion at 6:00 1 cm from nipple which appears to have a hyperechoic focus which could represent calcification. This findings and does not definitively correlate with mammography as a lesion on mammography was in the left breast slightly medial for 4.0 cm from the nipple. Overall Assessment: Probably benign, BI-RAD 3 Management: Diagnostic Mammogram of the left breast in 6 months. A clinical breast exam by your physician is recommended on an annual basis and results should be correlated with mammographic findings. This exam should not preclude additional follow-up of suspicious palpable abnormalities. Results were given to the patient verbally at the time of exam. Electronically signed and approved by: Dada Hook DO
--- NOTE | 2023-06-01 07:58 | P.PN ---
Progress Note - Text Progress Note Date: 06/01/23 OUTPATIENT FOLLOW-UP NOTE TEST(S)/RESULTS: Bilateral screening mammogram done on 05/25/2023 required a left breast workup which was done on 05/31/2023. The workup was probably benign and a six-month left diagnostic mammogram was recommended. METHOD OF NOTIFICATION: The results were verbally given to the patient by the radiology Department at the time of the workup. PATIENT COMMENTS: DIAGNOSIS: Probably benign left breast workup. DISCUSSION: PLAN: Diagnostic left breast mammogram in 6 months. The order slip will be mailed to the patient.
== END | disposition home or self-care (01) ==
LOC: RADUSWWP 14:11
PROVIDERS: ATTEND Obstetrics & Gynecology
DX: R92.8 Other abnormal and inconclusive findings on diagnostic imaging of breast (principal); Z78.0 Asymptomatic menopausal state; Z80.3 Family history of malignant neoplasm of breast

== ENCOUNTER → 2023-06-23 | Day surgery (SDC) | payer BC ==
[2023-06-23 11:38] VITALS: BP 153/84; PULSE 73; RESP 17
--- NOTE | 2023-06-23 12:04 | P.PCN ---
Date of Procedure: 06/23/23 Preoperative Diagnosis: vaginal mucosal lesion Postoperative Diagnosis: Same Procedure(s) Performed: Removal of vaginal lesion. Anesthesia: local Surgeon: Steve Dash Estimated Blood Loss (ml): 1 Pathology: other (Vaginal lesion) Condition: stable Disposition: same day Indications for Procedure: This was a 58-year-old menopausal female with a mucosal tag at the vaginal opening with a red area at the tip. This has been persistent for many weeks. Operative Findings: The mucosal lesion appears to be a reminiscent of the hymeneal ring at the 7 o'clock position of the introitus. The mucosal tag appears proximally 9 x 3 x 3 mm. There is a red lesion at the tip of the tag. The reddish lesion measures approximately 2 x 3 mm. Description of Procedure: The procedure was discussed with the patient. We have also reviewed possible risks including bleeding or infection. All questions were answered. Preprocedure vital signs: Blood pressure 153/84, height 5 feet 6 inches, weight 113 pounds, temperature 97.9, pulse 73, pulse oximeter 99%. The patient was placed in the lithotomy position and the area was prepped with Betadine. Approximately 1.5 mL of 1% lidocaine was used for local anesthesia. Following determination of adequate anesthesia, the mucosal tag was excised with scissors. The site was made hemostatic with a silver nitrate stick. The patient tolerated the procedure well. There were no complications. The mucosal lesion was sent for pathological examination. Postprocedure blood pressure was 137/92, pulse 59 and pulse oximeter 99%. The patient was discharged home in stable condition. She was instructed to call if she has problems including persistent bleeding, heavy bleeding, unusual pain, fever, or other problems. She was instructed to not partake in any sexual activity for 2 weeks. She will also avoid running for exercise for 1 week.
--- NOTE | 2023-06-30 12:56 | P.PN ---
Progress Note - Text Progress Note Date: 06/30/23 OUTPATIENT FOLLOW-UP NOTE TEST(S)/RESULTS: Pathology report from 06/23/2023 showed a benign and inflamed mucosal fibroepithelial polyp. METHOD OF NOTIFICATION: The patient was notified by phone on 06/30/2023. PATIENT COMMENTS: She states she had a small amount of oozing blood immediately after the procedure but has not had anything over the past 2 days. She denies any fever or unusual pain. DIAGNOSIS: Benign inflamed mucosal fibroepithelial polyp DISCUSSION: She will continue to avoid running and sexual activity for 1 additional week. Nothing further will need to be done. PLAN: She will return for her annual exam at the appropriate time.
== END ==
LOC: WWCWWP 11:00
PROVIDERS: ATTEND Obstetrics & Gynecology
DX: N89.8 Other specified noninflammatory disorders of vagina (principal); Z78.0 Asymptomatic menopausal state
CPT/HCPCS: 57100; 57135; 88305

== ENCOUNTER → 2023-07-13 | Outpatient (CLI) | payer BC ==
--- NOTE | 2023-07-19 12:29 | CT ---
EXAMINATION TYPE: CT facial bones wo con CT DLP: 785 mGycm, Automated exposure control for dose reduction was used. DATE OF EXAM: 07/13/2023 9:23 AM COMPARISON: . CLINICAL INDICATION:Female, 58 years old with history of J32.9 SINUSITIS; PHH, Sinusitis, Lt sided fa cial pain pressure, jaw pain TECHNIQUE: Multiple unenhanced axial CT images were obtained of the facial bones soft tissue and bone windows. Coronal, axial and sagittal reformatted images were also provided in soft tissue and bone windows and submitted for interpretation. FINDINGS: Osseous mineralization appears somewhat diminished. No evidence of lytic/blastic lesion or destructiv e osseous process. No evidence of acute facial bone fracture. Temporomandibular joints are intact and normally aligned. There is mild right TMJ osteoarthritis with small marginal osteophyte along the co ndylar head. Zygomatic arches are intact. No displaced nasal bone fracture. Intact anterior nasal spi ne. No orbital fracture. No retrobulbar hematoma. Globes appear symmetric and unremarkable. The paranasal sinuses show minimal scattered mucosal disease without significant fluid accumulation. There is mild to moderate nasal septal deviation towards the left involving its anterior to mid porti ons. Facial soft tissues are grossly unremarkable. Included cervical spine shows mild degenerative disc changes at the C4-C5 level with small marginal o steophytes. IMPRESSION: 1. No acute osseous pathology of the facial bones. 2. Mild right TMJ osteoarthritis. 3. Minimal mucosal thickening in the paranasal sinuses without fluid accumulation.
== END | disposition home or self-care (01) ==
LOC: RADCTMAIN 09:02
PROVIDERS: ATTEND Internal Medicine Geriatric Medicine
DX: J34.89 Other specified disorders of nose and nasal sinuses (principal); J32.9 Chronic sinusitis, unspecified; M26.641 Arthritis of right temporomandibular joint
CPT/HCPCS: 70486

== ENCOUNTER → 2023-08-24 | Outpatient (CLI) | payer BC ==
[2023-08-24 15:18] VITALS: BP 171/91; PULSE 79; RESP 17; TEMP 97.8
--- NOTE | 2023-08-24 15:40 | P.PN ---
Progress Note - Text Progress Note Date: 08/24/23 Chief Complaint: Small vaginal spotting 1 week ago. HPI: This is a 58-year-old with an LMP of 2019. The patient developed a small amount of spotting in her underwear 1 week ago. She showed me a picture which showed 2 small spots each measuring about 0.5 cm on a pad or in her underwear. She states she has had no bleeding since then. She has noticed some redness near the urethra and just anterior to the urethra. She denies any significant cramping. ROS: She denies respiratory, cardiac, or GI problems. She denies urinary urgency or frequency. PE: Blood pressure: 171/91, Height: 5 feet 6 inches, Weight: 112 pounds, Temperature: 97.8, Pulse: 79. Pulse oximeter 99%. This is a well developed, well nourished, white female who is alert and orientedx3, in no acute distress. Pelvic exam: Normal external genitalia with mild to moderate atrophy. His the labia are spread apart, there is slight redness at the 12 o'clock position of the urethra opening. There is also redness between the anterior most aspects of the labia. This is a symmetric distribution in seems to correspond with the area of the mucosa between the apex of the labia and urethra. Impression: 1. Small postmenopausal vaginal spotting 1 week ago. 2. Redness noted on the mucosa between the labia at its apex. This probably is related to atrophic mucosa which has fused and then been . Plan: 1. Pelvic ultrasound will be used to determine the endometrial thickness. If this is 4 mm or less, the small amount of blood probably discomfort from mucosa between fused labia. In this situation we will use estrogen cream to the vagina and to this area between the labia near the apex. In the meantime she can use a small amount of KY jelly to help prevent adhesions of the mucosal tissue in that area. The order slip for the ultrasound was given to the patient. Time spent with the patient: 20 minutes
== END ==
LOC: WWCWWP 14:26
PROVIDERS: ATTEND Obstetrics & Gynecology
DX: N93.9 Abnormal uterine and vaginal bleeding, unspecified (principal); Z78.0 Asymptomatic menopausal state

== ENCOUNTER → 2023-09-13 | Outpatient (CLI) | payer BC ==
--- NOTE | 2023-09-13 19:29 | US ---
EXAMINATION TYPE: US pelvic complete DATE OF EXAM: 09/13/2023 COMPARISON: 02/03/2022 CLINICAL INDICATION: Female, 58 years old with history of N95.0 POSTMENOPAUSAL BLEEDING; one episode of spotting a few weeks ago TECHNIQUE: Transabdominal sonographic images of the pelvis were acquired. Date of LMP: age 53 EXAM MEASUREMENTS: Uterus: 6.5x2.9x7.2 cm Endometrial Stripe: 0.6 cm Right Ovary: 2.1x1.1x1.7 cm Left Ovary: 1.7x1.0x1.4 cm 1. Uterus: Limited detailed assessment. Anteverted. What was previously identified as a posterior right uterine fundal fibroid again seen measurin.0x2.2x2.1cm (versus 3.5 cm, previously). 2. Endometrium: Some internal echogenic areas could reflect calcifications which are nonspecific. 3. Right Ovary: wnl 4. Left Ovary: wnl 5. Bilateral Adnexa: wnl 6. Posterior cul-de-sac: wnl IMPRESSION: 1. Endometrial stripe thickness estimated at 6 mm which would be borderline thickened for a postmenop ausal female with bleeding. Recommend short interval follow-up to reassess as progressive postmenopau agueda endometrial thickening would be a worrisome finding. If further detailed assessment of the juncti onal anatomy is desired, female pelvic MRI can be performed. 2. A 3.0 cm right posterior uterine fundal fibroid redemonstrated. 3. Small postmenopausal ovaries.
== END | disposition home or self-care (01) ==
LOC: RADUSWWP 07:17
PROVIDERS: ATTEND Obstetrics & Gynecology
DX: D25.9 Leiomyoma of uterus, unspecified (principal); N95.0 Postmenopausal bleeding; N85.8 Other specified noninflammatory disorders of uterus
CPT/HCPCS: 76856

== ENCOUNTER → 2024-03-17 | Outpatient (CLI) | payer BC ==
--- NOTE | 2024-03-17 12:57 | US ---
EXAMINATION TYPE: US pelvic complete DATE OF EXAM: 03/17/2024 COMPARISON: Pelvic ultrasound 09/13/2023 CLINICAL INDICATION: Female, 59 years old with history of N95.0 post menopausal bleeding; Follow up t o previous TECHNIQUE: Transabdominal (TA EXAM MEASUREMENTS: Uterus: 6.6 x 2.7 x 5.5 cm Endometrial Stripe: .6 cm Right Ovary: 2.9 x 1.9 x cm Left Ovary: 3.5 x 1.1 x 1.6 cm 1. Uterus: Anteverted Fibroid seen 2.6 x 2.2 x 2.1 cm 2. Endometrium: wnl 3. Right Ovary: anechoic area 1.4 x 1.7 x 1.0 cm consistent with dominant follicle 4. Left Ovary: wnl 5. Bilateral Adnexa: wnl 6. Posterior cul-de-sac: wnl IMPRESSION: 1. Unchanged endometrial thickness estimated at 6 mm which is borderline thickened for postmenopausal female. Consider further evaluation with MRI pelvis or direct visualization. 2. Fibroid changes of the uterus.
--- NOTE | 2024-03-23 10:27 | P.PN ---
Progress Note - Text Progress Note Date: 03/23/24 OUTPATIENT FOLLOW-UP NOTE TEST(S)/RESULTS: Pelvic ultrasound done on 03/17/2024 showed a endometrial thickness of 6 mm, which was the same as her September 2023 ultrasound, a 1.7 cm right simple ovarian cyst, and that 2.6 cm fibroid. METHOD OF NOTIFICATION: The patient was notified by phone on 03/23/2024. PATIENT COMMENTS: The patient states she has not had any spotting or bleeding since September 2023 and she has been using Replens vaginal moisturizer which has been very helpful. DIAGNOSIS: Borderline endometrial thickness of 6 mm with no ongoing vaginal bleeding, simple right ovarian cyst measuring 1.7 cm in a postmenopausal female and small stable uterine fibroid. DISCUSSION: After her episode of having a vaginal spot of blood, the finding was consistent with labial fusion which had been . I think this is the most likely cause for the spot of blood. Using the vaginal moisturizer she has had no additional bleeding. I feel we can follow the endometrial thickness. She understands that if she has any bleeding she should call and if there is increasing endometrial thickness with future ultrasounds, we we will further discuss endometrial sampling. We will also follow the right simple ovarian cyst conservatively. Recommended repeating the pelvic ultrasound in 1 year. I dis cussed this at her annual exam in May. We can also consider repeating it in 6 months. PLAN: As above. She will be seen for her annual exam in May.
== END | disposition home or self-care (01) ==
LOC: RADUSWWP 08:46
PROVIDERS: ATTEND Obstetrics & Gynecology
CPT/HCPCS: 76856

== ENCOUNTER → 2024-04-12 | Outpatient (CLI) | payer BC ==
--- NOTE | 2024-04-12 09:53 | CT ---
EXAMINATION TYPE: CT brain wo con DATE OF EXAM: 04/12/2024 COMPARISON: HISTORY: chronic RT side sinusitis and headache. CT DLP: 1029.[address] of the brain was performed. The ventricles, basal cisterns and sulci overlying the cerebral convexities demonstrate mild enlargem ent. There is no evidence for intracranial hemorrhage or sulcal effacement. There is decreased attenuation about the periventricular white matter and deep white matter of both c erebral hemispheres, compatible with chronic small vessel ischemia. Differential diagnosis does inclu de demyelination. No mass effects are seen.No midline shift. Osseous calvarium is intact. If symptoms persist consider MRI. IMPRESSION: 1. Age related atrophic and chronic small vessel ischemic change without acute intracranial process s een at this time. [facility], , 04/12/2024 9:51 AM
--- NOTE | 2024-04-12 09:54 | CT ---
EXAMINATION TYPE: CT facial bones wo con DATE OF EXAM: 04/12/2024 COMPARISON: None HISTORY: chronic RT side sinusitis and headache. CT DLP: 679.[address] of the paranasal sinuses was performed in the axial and coronal planes. Bone and soft tissue settings are submitted. The paranasal sinuses demonstrate normal aeration and development. The paranasal sinuses are free of mucosal thickening or air fluid level. The osteal meatal units are patent bilaterally. The nasal septum is mildly deviated from right to left. No bony destructive changes are seen within the field of view. IMPRESSION: Nasal septal deviation. Otherwise unremarkable study. [facility], , 04/12/2024 9:52 AM
== END | disposition home or self-care (01) ==
LOC: RADCTMAIN 08:24
PROVIDERS: ATTEND Internal Medicine Geriatric Medicine
DX: R51.9 Headache, unspecified (principal); J32.9 Chronic sinusitis, unspecified; I67.82 Cerebral ischemia
CPT/HCPCS: 70450; 70486

== ENCOUNTER → 2024-06-21 | Outpatient (CLI) | payer BC ==
--- NOTE | 2024-06-22 14:34 | BD ---
EXAMINATION TYPE: Axial Bone Density DATE OF EXAM: 06/21/2024 CLINICAL HISTORY: 59 years old Female. ICD-10 CODE: M81.0 AGE-RELATED OSTEOPOROSIS , Additional Hist ory: Height: 65.5 in Weight: 110 lbs FRAX RISK QUESTIONS: History of Fracture in Adulthood: rt humerus age 24 MEDICATIONS: Osteoporosis Medications: not now Which medication: Fosamax How Lon months EXAM MEASUREMENTS: Bone mineral densitometry was performed using the [employer] System. Bone mineral density as measured about the Lumbar spine is: ----- L1-L4(G/cm2): 0.836 T Score Values are as follows: ----- L1: -3.3 ----- L2: -2.9 ----- L3: -2.8 ----- L4: -2.7 ----- L1-L4: -2.9 Z Score Values are as follows: ----- L1: -1.5 ----- L2: -1.1 ----- L3: -1.0 ----- L4: -0.9 ----- L1-L4: -1.1 Bone mineral density has: Increased 4.5% since study of: 05/27/2022 Bone mineral density about the R hip (g/cm2): 0.695 Bone mineral density about the L hip (g/cm2): 0.732 T Score values are as follows: -----R Neck: -2.1 -----L Neck: -2.0 -----R Total: -2.5 -----L Total: -2.2 Z Score values are as follows: -----R Neck: -0.5 -----L Neck: -0.4 -----R Total: -1.1 -----L Total: -0.8 Bone mineral density has: Increased 5.0% since study of: 05/27/2022 FRAX%s: The graph provided illustrates a 14.6% chance for a major osteoporotic fx and a 2.5% chance f or the hips probability for fx in 10 years time. IMPRESSION: Osteoporosis (T Score less than -2.5). There is increased fracture risk and therapy is usually indicated based on age. Re-Screen 1-2 years. NOTE: T-SCORE=SD OF THE YOUNG ADULT MEAN. [facility], , 06/22/2024 2:32 PM
== END | disposition home or self-care (01) ==
LOC: RADBDWWP 08:04
PROVIDERS: ATTEND Internal Medicine Geriatric Medicine
DX: M81.0 Age-related osteoporosis without current pathological fracture (principal)
CPT/HCPCS: 77080

== ENCOUNTER → 2024-06-21 | Outpatient (CLI) | payer BC ==
[2024-06-21 08:20] VITALS: BP 159/78; PULSE 74; RESP 17; TEMP 97.9
--- NOTE | 2024-06-21 09:03 | P.HPOB ---
History of Present Illness H&P Date: 06/21/24 Chief Complaint: The patient is here for her routine gynecologic exam. This is a 59-year-old G1, P1 with an LMP of 2019. The patient had been seen in September 2023 after she noticed a spot of blood from the introitus. It was noted that she had some redness from an area where the labia had been fused and had come apart. She has been using a vaginal moisturizer and she has not noticed any more spotting after that 1 episode. Pelvic ultrasound was done at that time and there was an endometrial thickness of 6 mm. A follow-up pelvic ultrasound was done 6 months later which again showed an endometrial thickness of 6 mm and there was a simple 1.7 cm right ovarian cyst noted. There was also a 2.6 cm uterine fibroid. She is without gynecologic complaints currently. She did have a left breast biopsy on 08/04/2023. She did have a 6-month follow-up at the [facility], where the biopsy was done. 6-month follow-up was benign per the patient. She is due for a bilateral screening mammogram in July 2024. She states she stopped taking Fosamax in February 2024. It was discontinued because she was having some gastritis symptoms and possible reflux. Have an EGD which did show gastritis. She will be doing a bone density test today. Review of Systems The patient's weight has been stable over the last year. She denies respiratory, cardiac, or G.I. problems. Past Medical History Past Medical History: No Reported History Additional Past Medical History / Comment(s): Osteopenia. Rosacea. 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 History of uterine fibroids. History of Any Multi-Drug Resistant Organisms: None Reported Past Surgical History: No Surgical Hx Reported Additional Past Surgical History / Comment(s): colonoscopy 2021(next after 10yr). EGD. Pedunculated fibroid removed vaginally 2005. Past Anesthesia/Blood Transfusion Reactions: No Reported Reaction, Motion Sickness Past Psychological History: No Psychological Hx Reported Smoking Status: Never smoker Past Alcohol Use History: None Reported Past Drug Use History: None Reported Additional History: She has been since 1988. 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 - Past Family History Mother Family Medical History: Cancer Additional Family Medical History / Comment(s): metastatic lung cancer Father Family Medical History: Hypertension Additional Family Medical History / Comment(s): Paternal grandmother had breast cancer and hypertension. Medications and Allergies Home Medications Medication Instructions Recorded Confirmed Type Azelaic Acid [Finacea] 1 each TOPICAL BID 02/14/16 08/24/23 History Multivitamins, Thera [Multivitamin 1 each PO DAILY 12/03/17 08/24/23 History (formulary)] Ibuprofen [Motrin Ib] 200 mg PO DAILY PRN 02/15/18 08/24/23 History Cholecalciferol [Vitamin D3 (25 25 mcg PO DAILY 05/12/22 08/24/23 History Mcg = 1000 Iu)] Loratadine [Claritin] 10 mg PO DAILY 06/21/24 06/21/24 History Allergies Allergy/AdvReac Type Severity Reaction Status Date / Time No Known Allergies Allergy Verified 06/21/24 08:16 Exam Vital Signs Temp Pulse Resp BP Pulse Ox 06/21/24 08:17 97.9 F 74 17 159/78 98 Intake and Output 06/20/24 06/21/24 06/21/24 22:59 06:59 14:59 Other: Weight 50.802 kg Height 5 feet 6 inches, weight 112 pounds, BMI 18.1. This is a well-developed well-nourished thin white female who is alert and oriented times 3 in no acute distress. HEENT: Within normal limits. NECK: Supple without mass or thyromegaly. CHEST AND LUNGS: Clear to auscultation. HEART: Regular rate and rhythm. BREASTS: Are without mass or discharge. AXILLARY EXAM: Negative for adenopathy. BACK: Negative for CVA tenderness. ABDOMEN: Soft, nontender, without palpable masses. PELVIC EXAM: Normal external genitalia with mild to moderate atrophy. There is minimal erythema just inferior to the clitoris. There is no evidence of labial adhesions and this seems less erythematous than when she had the fused labia that in September. Cervix and vagina appear normal with mild to moderate atrophy. There is no unusual discharge. There is no evidence of prolapse. The uterus is midposition, nongravid size and nontender. There are no palpable adnexal masses or tenderness. RECTAL EXAM: Rectovaginal exam is negative for mass or tenderness and is negative for occult blood. EXTREMITIES: Nontender. IMPRESSION: 1. 59-year-old menopausal female with normal gynecologic exam. 2. History of partial labial fusion which and this has been much improved with the use of a vaginal moisturizer. 3. History of borderline endometrial thickness of 6 mm with no evidence of uterine bleeding. 4. 1.7 cm right simple ovarian cyst by ultrasound seen in March 2024. 5. Elevated blood pressure. PLAN: 1. Pap smear was deferred since she had a negative Pap smear cotest on 04/01/2021. 2. Self breast awareness was discussed with the patient. We have also discussed symptoms associated with inflammatory breast cancer. 3. Screening mammogram will be due in late July. She states she plans on doing this at the [facility]. The order slip was given to the patient for this. 4. We will plan on repeating the pelvic ultrasound approximately 6 months after her last 1 and the order slip was given to the patient for this. 5. Osteoporosis management was discussed. I have stressed the importance of adequate calcium, vitamin D and regular exercise. Recommended amounts of manpreet cium and vitamin D were also discussed. She recently has discontinued the Fosamax because of some GI symptoms. Bone density test will be done today. She continues to have significant osteoporosis, consider restarting bisphosphonates either in the form of oral or possible IV form, Reclast. She will further discuss this with her PCP who has been prescribing her osteoporosis medication 6. We have discussed her elevated blood pressure. She will take her blood pressures at home. She will alter the times when she takes the blood pressures. She will follow-up with her PCP for blood pressure elevations. 7. She was advised to return in one year for her annual well woman exam and as needed.
== END ==
LOC: WWCWWP 08:03
PROVIDERS: ATTEND Obstetrics & Gynecology
DX: Z01.419 Encounter for gynecological examination (general) (routine) without abnormal findings (principal); N83.291 Other ovarian cyst, right side; R03.0 Elevated blood-pressure reading, without diagnosis of hypertension; Z78.0 Asymptomatic menopausal state; Z98.1 Arthrodesis status; Z80.3 Family history of malignant neoplasm of breast

== ENCOUNTER → 2024-09-19 | Outpatient (CLI) | payer BC ==
--- NOTE | 2024-09-19 10:10 | US ---
EXAMINATION TYPE: US pelvis complete transvag DATE OF EXAM: 09/19/2024 COMPARISON: US 2023 CLINICAL INDICATION: Female, 59 years old with history of N83.0 FOLLICULAR CYST OF RIGHT OVARY; Follo w up ovarian cyst TECHNIQUE: Transvaginal (TV) and Transabdominal (TA) . FINDINGS: Date of LMP: Age 53 EXAM MEASUREMENTS: Uterus: 6.3 x 2.8 x 4.7 cm Endometrial Stripe: 0.3 cm Right Ovary: not seen Left Ovary: not seen 1. Uterus: anteverted, 2 fibroids seen measuring 2.1 x 2.0 x 2.1cm and 2.4 x 2.0 x 2.1cm 2. Endometrium: 0.9cm polyp, fluid within endo 3. Right Ovary: not seen due to overlying bowel gas 4. Left Ovary: not seen due to overlying bowel gas 5. Bilateral Adnexa: wnl 6. Posterior cul-de-sac: free fluid IMPRESSION: 1. Leiomyomatous changes of the uterus. 2. Probable polyp within the endometrium. Consider direct visualization. O-RADS 2021 [email or web address] [facility], , 09/19/2024 10:08 AM
--- NOTE | 2024-09-20 13:44 | P.PN ---
Progress Note - Text Progress Note Date: 09/20/24 OUTPATIENT FOLLOW-UP NOTE TEST(S)/RESULTS: Pelvic ultrasound done on 09/19/2024 was done to follow-up regarding a small simple cyst measuring approximately 1.7 cm and to follow-up on a small amount of endometrial fluid noted by ultrasound about 6 months ago. The pelvic ultrasound now shows a polypoid mass measuring approximately 9 mm surrounded by some endometrial fluid within the uterine cavity. There are no ovarian masses seen. The endometrial stripe was measured at 0.3 cm. Small uterine fibroids are also noted which have been seen with previous ultrasounds. METHOD OF NOTIFICATION: Patient was notified by phone on 09/20/2024. PATIENT COMMENTS: She states she had a small amount of spotting after the vaginal probe ultrasound yesterday. DIAGNOSIS: Endometrial polypoid mass with fluid within the uterine cavity. DISCUSSION: Being that the initial ultrasound was done because of the small amount of postmenopausal bleeding, with these findings I am recommending referral for possible hysteroscopy with D&C. She will be referred to Dr. Roger for further evaluation. PLAN: As above.
== END | disposition home or self-care (01) ==
LOC: RADUSWWP 09:19
PROVIDERS: ATTEND Obstetrics & Gynecology
DX: N83.01 Follicular cyst of right ovary (principal); D25.9 Leiomyoma of uterus, unspecified
CPT/HCPCS: 76830; 76856